=== PATIENT | male | born 1940 | race Caucasian/White ===

== ENCOUNTER 2021-10-25 12:47 | Inpatient (IN) | payer MEDICARE, OTHER, SELFPAY ==
[2021-10-25] VITALS (11 sets, daily range): BP systolic 88–124; BP diastolic 47–64; PULSE 67–88; RESP 12–24; TEMP 36.6–38; O2SAT 93–97; BMI 25.0; BMI 21.8
--- NOTE | ~2021-10-25 | XR_ITS ---
EXAMINATION: XR CHEST CLINICAL INFORMATION: Weakness. Fever. COMPARISON: None TECHNIQUE: 2 views of the chest were obtained. FINDINGS: The cardiac and mediastinal contours are normal. There is subsegmental atelectasis at the lung bases. The lungs are otherwise clear. There is blunting at the left lateral costophrenic angle questionable for a small left pleural effusion. There is no right pleural effusion. There is no pneumothorax. There are degenerative changes of the spine. XR/XR chest 2V IMPRESSION: Subsegmental atelectasis at the lung bases. Question small left pleural effusion.
--- NOTE | 2021-10-25 13:33 | ECG_ITS ---
Test Reason : WEAKNESS + AMS Blood Pressure : / mmHG Vent. Rate : 074 BPM Atrial Rate : 074 BPM P-R Int : 210 ms QRS Dur : 116 ms QT Int : 426 ms P-R-T Axes : 044 -23 071 degrees QTc Int : 472 ms Sinus rhythm with 1st degree A-V block Intra-ventricular conduction delay When compared with ECG of 02-JAN-2006 06:49, QRS duration increased. Referred By: Isha Noriega Electronically Signed By:MARY REGALADO
--- NOTE | 2021-10-25 13:37 | ED_ITS ---
HPI - Weakness General Chief complaint: General Medical Stated complaint: GENERAL WEAKNESS, FEVER FROM [facility] Time Seen by Provider: 10/25/21 13:07 Source: patient and EMS Mode of arrival: EMS Limitations: no limitations History of Present Illness HPI Narrative: patient presents from a [facility] for evaluation of generalized weakness and fever. Patient's family member presented to the facility and felt that he seemed more lethargic today than normal. Was found to have temp of 100.6 degrees. Patient is pleasantly confused, has no complaints when asked. Is oriented to person. Related Data Home Medications Medication Instructions Recorded Confirmed acetaminophen 650 mg 650 mg PO Q4H PRN 10/25/21 10/25/21 tablet,extended release albuterol sulfate 90 mcg/actuation 2 inh INHALATION Q4-6H PRN 10/25/21 10/25/21 breath activated powder inhaler amiodarone 400 mg tablet 400 mg PO BID 10/25/21 10/25/21 apixaban 5 mg tablet (Eliquis) 1 tab PO BID 10/25/21 10/25/21 calcium carbonate 600 mg-vitamin 1 tab PO DAILY 10/25/21 10/25/21 D3 5 mcg (200 unit) tablet furosemide 20 mg tablet 20 mg PO DAILY 10/25/21 10/25/21 gabapentin 600 mg tablet 600 mg PO BEDTIME 10/25/21 10/25/21 metoprolol succinate 25 mg 75 mg PO DAILY 10/25/21 10/25/21 tablet,extended release 24 hr multivitamin 1 tab PO DAILY 10/25/21 10/25/21 nystatin 100,000 unit/gram topical 1 appl TOPICAL QID PRN 10/25/21 10/25/21 cream paroxetine HCl 10 mg tablet 5 mg PO DAILY 10/25/21 10/25/21 polyethylene glycol 3350 17 gram 17 g PO DAILY PRN 10/25/21 10/25/21 oral powder packet pramipexole 0.75 mg tablet 0.75 mg PO BEDTIME 10/25/21 10/25/21 prednisone 1 mg tablet 3 mg PO DAILY 10/25/21 10/25/21 rotigotine 3 mg/24 hour 1 patch TOPICAL DAILY 10/25/21 10/25/21 transdermal 24 hour patch (Neupro) sennosides 8.6 mg tablet (senna) 8.6 mg PO DAILY PRN 10/25/21 10/25/21 sulfamethoxazole 800 1 tab PO MOWEFR 10/25/21 10/25/21 mg-trimethoprim 160 mg tablet tamsulosin 0.4 mg capsule 2 cap PO DAILY 10/25/21 10/25/21 Allergies Allergy/AdvReac Type Severity Reaction Status Date / Time Penicillins [PCN] Allergy Unknown Verified 10/25/21 13:29 Review of Systems Review of Systems: Yes Unobtainable due to mental status ( confusion, oriented to person only) [facility] Past Medical History Attestation statement: The following information was validated with the patient. Source: old records reviewed Medical History (Updated 10/25/21 @ 18:34 by Isha Noriega CNP) Anxiety Atrial fibrillation BPH (benign prostatic hyperplasia) Chronic indwelling Luther catheter Congestive heart failure (CHF) Current use of longterm anticoagulation Dysphagia Obstructive sleep apnea Restless leg syndrome Social History Social History Patient Tobacco Use Status: Tobacco use Unknown Use of substances other than those prescribed or required for medical reasons: No Advance Directives: No Advance Directives Information Provided: No Physical Exam Vital Signs: Vital Signs: Last Vital Signs Temp 97.9 F 10/25/21 16:06 Pulse 67 10/25/21 18:29 Resp 16 10/25/21 18:29 BP 108/64 10/25/21 18:29 Pulse Ox 97 10/25/21 16:25 Oxygen Flow Rate 2 10/25/21 13:24 BMI result Body Mass Index 21.8 Vital signs have been reviewed and appeared to be correct. Blood pressure low 94/57.? Heart rate normal.? Respiration rate normal. febrile 100.3? Oxygen saturation normal, on O2 via nasal cannula at 2 L, with chronic usage. Appearance: Alert.?Oriented to person, disoriented to place and time. No acute distress.? Eyes: Pupils equal, round and reactive to light.?EOMi. No Nystagmus ENT: Pharynx normal.?? Neck: Normal inspection.? Neck supple.?? CVS: Heart sounds normal. Normal heart rate and rhythm.? Pulses normal.?? Respiratory: No respiratory distress.? Lung sounds clear to auscultation un upper lobes, course in the right lower lobe, diminished to the left lower lobe Abdomen: Soft and non-tender. Normoactive bowel sounds. No pulsatile mass.?? Skin: Skin warm and dry.? Normal skin color.? Extremities: No lower extremity edema.? No calf ttp? Neuro: Moves all extremities spontaneously. Sensation intact bilaterally. CN II- XII intact. No focal neuro deficits. Course Course Course Narrative: Patient is an 81-year-old male presenting from a [facility] facility with concerns of generalized weakness, lethargy, and fever with a history atrial fibrillation long-term anticoagulation with Eliquis, CHF, dysphagia, BPH with chronic indwelling Luther catheter, anxiety, restless legs syndrome, obstructive sleep apnea, chronic O2 via nasal cannula. Will obtain CBC to evaluate for leukocytosis/ anemia, CMP to evaluate for abnormal electrolytes /abnormal renal function/ abnormal hepatic function, EKG and troponin to evaluate for ischemia/ACS. Chest x-ray to evaluate for consolidation/ infiltrate/ mass/ pulmonary congestion. Urinalysis to evaluate for infection. Low-grade fever and dysphagia, will order rectal Tylenol, 1 L normal saline IV fluid, blood cultures and lactic acid. given patient's altered mental status, and history of penicillin allergy with unknown severity, consulted with the ED attending Dr. Cazares and pharmacy, will cover with Meropenem at this time. Pressure 94/57, MAP currently greater than 65, given history CHF will defer sepsis fluid bolus at this time. Reevaluation(s) Reevaluation #1: CBC reveals leukocytosis WBC 13.0 with left shift. no lactic acidosis. BNP normal. Troponin 6.5, EKG reveals sinus rhythm with first-degree AV block, no acute concern for ischemia. COVID-19 negative. Influenza negative. chest x- ray reveals subsegmental atelectasis at the lung bases in question of small left pleural effusion. Urinalysis with positive nitrates, 3+ leuk esterase, urine WBC TNTC and hematuria. Patient's at bedside currently, she reports that over the last few weeks he was recently admitted to [facility] for which he was being treated with IV antibiotics for urinary tract infection. She states that he has been worked up over the past few months for progressive cognitive decline and weakness, immobility. Obtaining records from [facility] at this time, will continue to cover with meropenem Time: 14:52 Reevaluation #2: Received records from [facility], appears to have urine culture positive for Enterococcus faecialis is sensitive to ampicillin, initially treated with ceftriaxone and switched to ampicillin and discharged with oral amoxicillin to rehab facility. 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 Blood pressure 85/47, MAP 60 after receiving 1 L IV fluid, will order sepsis fluid bolus for total of 2,193 mL. Time: 15:56 Additional Reevaluation(s): 1630: blood pressure responding to fluids, 108/64, Spoke with Dr. Maier from hospitalist service, who accepts patient for admission to medicine service. [facility] - [facility] Medical Records Attestation: I reviewed the patient's medical records. Lab Data Attestation: I reviewed the patient's lab results. Result diagrams: 10/25/21 13:51 10/25/21 15:30 Labs: Lab Results 10/25/21 10/25/21 10/25/21 Range/Units 13:37 13:51 13:51 WBC 13.0 H (4.8-10.8) X10*3/uL RBC 4.14 L (4.60-5.80) X10*6/uL Hgb 12.2 L (14.0-18.0) g/dl Hct 39.3 L (42.0-52.0) % MCV 94.9 (80.0-98.0) fL MCH 29.5 (27.0-33.0) pg MCHC 31.0 (31.0-36.0) g/dl RDW 15.4 (11.0-16.0) % Plt Count 210 (160-400) X10*3/uL MPV 10.2 (9.4-12.4) fL Immature Gran % (Auto) 0.6 H (0.0-0.4) % Neut % (Auto) 83.9 H (45-73) % Lymph % (Auto) 6.8 L (20-40) % [place] % (Auto) 7.3 (2-11) % Eos % (Auto) 1.2 (0-4) % Baso % (Auto) 0.2 (0-2) % Lymph # (Auto) 0.9 L (1.2-4.9) X10*3/uL [place] # (Auto) 1.0 (0.1-1.2) X10*3/uL Eos # (Auto) 0.2 (0.0-0.4) X10*3/uL Baso # (Auto) 0.0 (0.0-0.2) X10*3/uL Abs Immat Gran (auto) 0.08 H (0.00-0.03) X10*3/uL Absolute Neuts (auto) 10.9 H (2.0-8.3) x10*3/uL Absolute Nucleated RBC 0.000 (0.0-0.012) X10*3/uL Nucleated RBC % (auto) 0.0 (0.0-0.2) /100WBC Sodium (135-145) mmol/L Potassium (3.3-5.1) mmol/L Chloride (96-108) mmol/L Carbon Dioxide (22-29) mmol/L Anion Gap (12-20) BUN (9-16) mg/dL Creatinine (0.5-1.4) mg/dL Estim Creat Clear Calc Estimated GFR POC Glucose 94 (60-115) mg/dL Random Glucose (60-115) mg/dL Lactic Acid 1.0 (0.5-2.0) mmol/L Calcium (8.4-10.2) mg/dL Total Bilirubin (0.0-1.0) mg/dL AST (5-37) U/L ALT (0-40) U/L Alkaline Phosphatase (39-117) U/L Troponin I High Sens (<3.5-35.0) ng/L B-Natriuretic Peptide (<100) pg/mL Total Protein (6.5-8.0) g/dL Albumin (3.5-5.0) g/dL Urine Color Urine Appearance Urine pH (5.0-8.0) Ur Specific [place] (1.005-1.025) Urine Protein (NEG-TRACE) MG/DL Urine Glucose (UA) (NEG) MG/DL Urine Ketones (NEG) MG/DL Urine Blood (NEG) Urine Nitrite (NEG) Ur Leukocyte Esterase (NEG) Urine RBC (0) /HPF Urine WBC (0-4) /HPF Ur Squamous Epith Cells /LPF Amorphous Sediment /LPF Urine Bacteria /LPF Urine Mucus /LPF COVID-19 (ERWIN) (Negative) COVID-19 Clin Com Influenza Type A ([facility]ITO) (Negative) Influenza Type B ([facility]) (Negative) Influenza A & B Note 10/25/21 10/25/21 10/25/21 Range/Units 13:51 13:59 13:59 WBC (4.8-10.8) X10*3/uL RBC (4.60-5.80) X10*6/uL Hgb (14.0-18.0) g/dl Hct (42.0-52.0) % MCV (80.0-98.0) fL MCH (27.0-33.0) pg MCHC (31.0-36.0) g/dl RDW (11.0-16.0) % Plt Count (160-400) X10*3/uL MPV (9.4-12.4) fL Immature Gran % (Auto) (0.0-0.4) % Neut % (Auto) (45-73) % Lymph % (Auto) (20-40) % [place] % (Auto) (2-11) % Eos % (Auto) (0-4) % Baso % (Auto) (0-2) % Lymph # (Auto) (1.2-4.9) X10*3/uL [place] # (Auto) (0.1-1.2) X10*3/uL Eos # (Auto) (0.0-0.4) X10*3/uL Baso # (Auto) (0.0-0.2) X10*3/uL Abs Immat Gran (auto) (0.00-0.03) X10*3/uL Absolute Neuts (auto) (2.0-8.3) x10*3/uL Absolute Nucleated RBC (0.0-0.012) X10*3/uL Nucleated RBC % (auto) (0.0-0.2) /100WBC Sodium (135-145) mmol/L Potassium (3.3-5.1) mmol/L Chloride (96-108) mmol/L Carbon Dioxide (22-29) mmol/L Anion Gap (12-20) BUN (9-16) mg/dL Creatinine (0.5-1.4) mg/dL Estim Creat Clear Calc Estimated GFR POC Glucose (60-115) mg/dL Random Glucose (60-115) mg/dL Lactic Acid (0.5-2.0) mmol/L Calcium (8.4-10.2) mg/dL Total Bilirubin (0.0-1.0) mg/dL AST (5-37) U/L ALT (0-40) U/L Alkaline Phosphatase (39-117) U/L Troponin I High Sens 6.5 (<3.5-35.0) ng/L B-Natriuretic Peptide 84 (<100) pg/mL Total Protein (6.5-8.0) g/dL Albumin (3.5-5.0) g/dL Urine Color Urine Appearance Urine pH (5.0-8.0) Ur Specific [place] (1.005-1.025) Urine Protein (NEG-TRACE) MG/DL Urine Glucose (UA) (NEG) MG/DL Urine Ketones (NEG) MG/DL Urine Blood (NEG) Urine Nitrite (NEG) Ur Leukocyte Esterase (NEG) Urine RBC (0) /HPF Urine WBC (0-4) /HPF Ur Squamous Epith Cells /LPF Amorphous Sediment /LPF Urine Bacteria /LPF Urine Mucus /LPF COVID-19 (ERWIN) Negative (Negative) COVID-19 Clin Com See Note Influenza Type A ([place]) Negative (Negative) Influenza Type B ([place]) Negative (Negative) Influenza A & B Note See Note 10/25/21 10/25/21 Range/Units 13:59 15:30 WBC (4.8-10.8) X10*3/uL RBC (4.60-5.80) X10*6/uL Hgb (14.0-18.0) g/dl Hct (42.0-52.0) % MCV (80.0-98.0) fL MCH (27.0-33.0) pg MCHC (31.0-36.0) g/dl RDW (11.0-16.0) % Plt Count (160-400) X10*3/uL MPV (9.4-12.4) fL Immature Gran % (Auto) (0.0-0.4) % Neut % (Auto) (45-73) % Lymph % (Auto) (20-40) % [place] % (Auto) (2-11) % Eos % (Auto) (0-4) % Baso % (Auto) (0-2) % Lymph # (Auto) (1.2-4.9) X10*3/uL [place] # (Auto) (0.1-1.2) X10*3/uL Eos # (Auto) (0.0-0.4) X10*3/uL Baso # (Auto) (0.0-0.2) X10*3/uL Abs Immat Gran (auto) (0.00-0.03) X10*3/uL Absolute Neuts (auto) (2.0-8.3) x10*3/uL Absolute Nucleated RBC (0.0-0.012) X10*3/uL Nucleated RBC % (auto) (0.0-0.2) /100WBC Sodium 141 (135-145) mmol/L Potassium 3.8 (3.3-5.1) mmol/L Chloride 108 (96-108) mmol/L Carbon Dioxide 26 (22-29) mmol/L Anion Gap 11 L (12-20) BUN 22 H (9-16) mg/dL Creatinine 1.10 (0.5-1.4) mg/dL Estim Creat Clear Calc 55.8 Estimated GFR > 60 POC Glucose (60-115) mg/dL Random Glucose 106 (60-115) mg/dL Lactic Acid (0.5-2.0) mmol/L Calcium 7.8 L (8.4-10.2) mg/dL Total Bilirubin 0.8 (0.0-1.0) mg/dL AST 23 (5-37) U/L ALT 24 (0-40) U/L Alkaline Phosphatase 73 (39-117) U/L Troponin I High Sens (<3.5-35.0) ng/L B-Natriuretic Peptide (<100) pg/mL Total Protein 5.2 L (6.5-8.0) g/dL Albumin 2.8 L (3.5-5.0) g/dL Urine Color YELLOW Urine Appearance CLOUDY Urine pH 5.5 (5.0-8.0) Ur Specific [place] 1.025 (1.005-1.025) Urine Protein 1+ H (NEG-TRACE) MG/DL Urine Glucose (UA) NEG (NEG) MG/DL Urine Ketones NEG (NEG) MG/DL Urine Blood 3+ H (NEG) Urine Nitrite POS H (NEG) Ur Leukocyte Esterase 3+ H (NEG) Urine RBC 15-29 H (0) /HPF Urine WBC TNTC H (0-4) /HPF Ur Squamous Epith Cells NONE /LPF Amorphous Sediment TRACE /LPF Urine Bacteria 1+ /LPF Urine Mucus 1+ /LPF COVID-19 (ERWIN) (Negative) COVID-19 Clin Com Influenza Type A ([place]ESITO) (Negative) Influenza Type B ([facility]ITO) (Negative) Influenza A & B Note Imaging Data Chest x-ray: Radiologist's impression: XR/XR chest 2V IMPRESSION: Subsegmental atelectasis at the lung bases. Question small left pleural effusion. ECG Data Attestation: I personally reviewed and interpreted this ECG as follows: ECG interpretation date: 10/25/21 ECG interpretation time: 15:21 Interpretation: Rate: 74 Rhythm:? sinus rhythm with first-degree AV block [place]:? normal Normal P waves.? prolonged AR interval, 210? Normal QRS complex.?? ST T wave :?? no ST elevation, no ST depression, no T-wave inversion qTC:472 prior studies:?2006 The study has been interpreted contemporaneously by me. Discharge Plan Discharge Clinical Impression: Urinary tract infection Patient Disposition: Admitted As Inpatient
[2021-10-25 13:43] LABS: Glucose, Whole Blood 94 mg/dL (60-115)
[2021-10-25] MEDS: 0.9 % Sodium Chloride 1,000 ML 999 ML IV (13:52)
[2021-10-25] MEDS: Acetaminophen Supp 650 MG SUPP.RECT PR (13:52)
[2021-10-25 14:02] LABS: MANUAL DIFF FLAG NO
[2021-10-25 14:04] LABS: Basophils Percent Auto 0.2 % (0-2); Eosinophils Absolute Auto 0.2 X10*3/uL (0.0-0.4); Eosinophils Percent Auto 1.2 % (0-4); Hematocrit 39.3 % (42.0-52.0); Hemoglobin 12.2 g/dl (14.0-18.0); Imm Gran Abs Auto 0.08 X10*3/uL (0.00-0.03); Imm Gran Pct Auto 0.6 % (0.0-0.4); Lymphocytes Absolute Auto 0.9 X10*3/uL (1.2-4.9); Lymphocytes Percent Auto 6.8 % (20-40); Mean Corpuscular Hemoglobin 29.5 pg (27.0-33.0); Mean Corpuscular Volume 94.9 fL (80.0-98.0); Mean Platelet Volume 10.2 fL (9.4-12.4); Monocytes Percent Auto 7.3 % (2-11); Neutrophils Absolute Auto 10.9 x10*3/uL (2.0-8.3); Neutrophils Percent Auto 83.9 % (45-73); Platelet Count 210 X10*3/uL (160-400); Red Blood Count 4.14 X10*6/uL (4.60-5.80); Red Cell Distribution Width 15.4 % (11.0-16.0)
[2021-10-25 14:16] LABS: Appearance Urine CLOUDY; Color Urine YELLOW; Glucose Urine UA NEG (NEG); Leukocyte Esterase Urine 3+ (NEG); Nitrite Urine POS (NEG); PH 5.5 (5.0-8.0); Specific Gravity - Urine 1.025 (1.005-1.025); UACC Culture Trigger YES; Urine Blood 3+ (NEG); Urine Ketones NEG (NEG); Urine Protein 1+ MG/DL (NEG-TRACE)
[2021-10-25 14:29] LABS: B Type Natriuretic Peptide 84 pg/mL (<100); Troponin-I High Sensitivity 6.5 ng/L (<3.5-35.0)
[2021-10-25 14:31] LABS: WBC Urine TNTC /HPF (0-4)
[2021-10-25 14:32] LABS: Amorphous Sediment Urine TRACE /LPF; Bacteria Urine 1+ /LPF; COVID-19 Test Negative (Negative); IDNOW Serial# 55D5AD1C
[2021-10-25 14:33] LABS: Mucus Urine 1+ /LPF
[2021-10-25 14:52] LABS: IDNOW Serial# 16C4AD1C; Influenza A Negative (Negative); Influenza B2 Negative (Negative)
--- NOTE | 2021-10-25 15:03 | PC.NURSE ---
[facility]tact for Stacy [phone] cell, [phone] home
[2021-10-25 15:54] LABS: Alanine Aminotransferase 24 U/L (0-40); Albumin Level 2.8 g/dL (3.5-5.0); Alkaline Phosphatase 73 U/L (39-117); Anion Gap 11 (12-20); Aspartate Amino Transferase 23 U/L (5-37); Bilirubin Total 0.8 mg/dL (0.0-1.0); Blood Urea Nitrogen 22 mg/dL (9-16); Calcium 7.8 mg/dL (8.4-10.2); Carbon Dioxide 26 mmol/L (22-29); Chloride 108 mmol/L (96-108); Creatinine Clr Calc Pharmacy 55.8; Estimated Glomerular Filt Rate > 60; Glucose Random 106 mg/dL (60-115); Potassium 3.8 mmol/L (3.3-5.1); Sodium 141 mmol/L (135-145); Total Protein 5.2 g/dL (6.5-8.0)
--- NOTE | 2021-10-25 18:34 | PC.NURSE ---
Pt is alert/confused (baseline per ) easily redirectable. Fluids are completed. BP trended up from prior soft BP's. skin pink warm and dry. NSR on tele. Pt denies pain or discomfort. awaits admit and bed assgn
--- NOTE | 2021-10-25 19:40 | PHA.MEDREC ---
Pharmacy Consult ? Medication Reconciliation Pharmacy has completed the medication reconciliation.
[2021-10-25] MEDS: Apixaban 5 MG TABLET PO (21:29)
[2021-10-25] MEDS: Amiodarone HCL 200 MG TABLET 400 MG PO (21:29)
[2021-10-25] MEDS: Gabapentin 600 MG TABLET PO (21:29)
[2021-10-25] MEDS: Pramipexole Di-HCL 0.25 MG TABLET 0.75 MG PO (22:18)
[2021-10-26] VITALS (11 sets, daily range): BP systolic 93–115; BP diastolic 48–67; PULSE 60–85; RESP 14–24; TEMP 36.8–37.7; O2SAT 93–97
[2021-10-26] MEDS: Ampicillin Sodium 2 GM in 0.9 % Sodium Chloride 100 ML IV ×5 (00:43→23:48)
[2021-10-26 06:32] LABS: MANUAL DIFF FLAG NO
--- NOTE | 2021-10-26 06:32 | P.HPHOSP_ITS ---
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 History is obtained mostly from ED PA as patient is completely confused, and unable to give history. According to ED patient was sent by facility due to fever of 100.6, and 1 family member while visiting the patient finding him to be more lethargic. On my interview, patient is alert, not oriented to self place or time. He is unaware of why he is in the hospital. After obtaining records from [facility], it appears that patient was recently treated for Enterococcus the Cialis and was discharged on a 7 day course of amoxicillin to the half-way facility on 10/12 Patient's vitals on arrival unremarkable Labs show WBC of 13.0, hemoglobin of 12.2, UA that is positive for nitrites, leukocyte Estrace and WBC Chest x-ray shows subsegmental atelectasis Patient will be admitted for further management Review of Systems Review of Systems: Yes all other systems are reviewed and are negative FORMERLY [facility], [facility]–1983 Medical History Anxiety Atrial fibrillation BPH (benign prostatic hyperplasia) Chronic indwelling Luther catheter Congestive heart failure (CHF) Current use of fpc anticoagulation Dysphagia Obstructive sleep apnea Restless leg syndrome Social History Patient Tobacco Use Status: Tobacco use Unknown Use of substances other than those prescribed or required for medical reasons: No Advance Directives: No Advance Directives Information Provided: No Meds Allergies Allergy/AdvReac Type Severity Reaction Status Date / Time Penicillins [PCN] Allergy Unknown Verified 10/25/21 13:29 Active Medications: Current Medications Acetaminophen (Acetaminophen 325 Mg Tablet) 650 mg PO Q6H PRN PRN Reason: Pain, Mild (Pain Scale 1-3) Albuterol Sulfate (Albuterol Sulfate 90 Mcg 8 Gm Inhaler) 2 puff INHALE Q4H PRN PRN Reason: Wheezing Amiodarone HCl (Amiodarone Hcl 200 Mg Tablet) 400 mg PO BID [facility] Last Admin: 10/25/21 21:29 Dose: 400 mg Documented by: Apixaban (Apixaban 5 Mg Tablet) 5 mg PO BID [facility] Last Admin: 10/25/21 21:29 Dose: 5 mg Documented by: Docusate Sodium (Docusate Sodium 100 Mg Capsule) 100 mg PO DAILY PRN PRN Reason: Constipation Furosemide (Furosemide 20 Mg Tablet) 20 mg PO DAILY [facility]; Protocol Gabapentin (Gabapentin 600 Mg Tablet) 600 mg PO BEDTIME [facility] Last Admin: 10/25/21 21:29 Dose: 600 mg Documented by: Ampicillin Sodium 2 gm/ Sodium (Chloride) 100 mls @ 100 mls/hr IV Q6H [facility] Last Admin: 10/26/21 06:21 Dose: 100 mls/hr Documented by: Metoprolol Succinate (Metoprolol Succinate Er 25 Mg Tab.Er.24h) 75 mg PO DAILY [facility]; Protocol Multivitamins/Vitamin C (Multivitamin Tablet) 1 tab PO DAILY [facility] Non-Formulary Medication (Rotigotine [Neupro]) 1 patch TOPICAL DAILY [facility] Nystatin (Nystatin Cream 15 Gm Tube) 1 appl TOPICAL QID PRN; Protocol PRN Reason: Rash Ondansetron HCl (Ondansetron Hcl 4 Mg/2 Ml Vial) 4 mg IVPUSH Q8H PRN PRN Reason: Nausea and Vomiting Paroxetine HCl (Paroxetine Hcl 10 Mg Tablet) 5 mg PO DAILY [facility] Pharmacy Consult (Consult Rx Perform Med Rec) 1 each MISCELLANE ONCE PRN PRN Reason: Consult order Polyethylene Glycol (Polyethylene Glycol 3350 17 Gm Powd.Pack) 17 gm PO DAILY PRN PRN Reason: Constipation Pramipexole Dihydrochloride (Pramipexole Di-Hcl 0.25 Mg Tablet) 0.75 mg PO BEDTIME [facility] Last Admin: 10/25/21 22:18 Dose: 0.75 mg Documented by: Prednisone (Prednisone 1 Mg Tablet) 3 mg PO DAILY [facility] Senna (Sennosides 8.6 Mg Tablet) 8.6 mg PO DAILY PRN PRN Reason: Constipation Sodium Chloride (0.9 % Sodium Chloride Flush 3 Ml Syringe) 3 ml IVFLUSH QSHIFT [facility] Last Admin: 10/26/21 00:43 Dose: Not Given Documented by: Tamsulosin HCl (Tamsulosin Hcl 0.4 Mg Capsule) 0.8 mg PO DAILY [facility] Trimethoprim/Sulfamethoxazole (Sulfamethox/Trimeth 800/160 Tablet) 1 tab PO MOWEFR [facility] Home Medications Medication Instructions Recorded Confirmed Last Taken Type acetaminophen 650 mg 650 mg PO Q4H PRN 10/25/21 10/25/21 Unknown History tablet,extended release albuterol sulfate 90 mcg/actuation 2 inh INHALATION Q4-6H PRN 10/25/21 10/25/21 Unknown History breath activated powder inhaler amiodarone 400 mg tablet 400 mg PO BID 10/25/21 10/25/21 Unknown History apixaban 5 mg tablet (Eliquis) 1 tab PO BID 10/25/21 10/25/21 Unknown History calcium carbonate 600 mg-vitamin 1 tab PO DAILY 10/25/21 10/25/21 Unknown History D3 5 mcg (200 unit) tablet furosemide 20 mg tablet 20 mg PO DAILY 10/25/21 10/25/21 Unknown History gabapentin 600 mg tablet 600 mg PO BEDTIME 10/25/21 10/25/21 Unknown History metoprolol succinate 25 mg 75 mg PO DAILY 10/25/21 10/25/21 Unknown History tablet,extended release 24 hr multivitamin 1 tab PO DAILY 10/25/21 10/25/21 Unknown History nystatin 100,000 unit/gram topical 1 appl TOPICAL QID PRN 10/25/21 10/25/21 Unknown History cream paroxetine HCl 10 mg tablet 5 mg PO DAILY 10/25/21 10/25/21 Unknown History polyethylene glycol 3350 17 gram 17 g PO DAILY PRN 10/25/21 10/25/21 Unknown History oral powder packet pramipexole 0.75 mg tablet 0.75 mg PO BEDTIME 10/25/21 10/25/21 Unknown History prednisone 1 mg tablet 3 mg PO DAILY 10/25/21 10/25/21 Unknown History rotigotine 3 mg/24 hour 1 patch TOPICAL DAILY 10/25/21 10/25/21 Unknown History transdermal 24 hour patch (Neupro) sennosides 8.6 mg tablet (senna) 8.6 mg PO DAILY PRN 10/25/21 10/25/21 Unknown History sulfamethoxazole 800 1 tab PO MOWEFR 10/25/21 10/25/21 Unknown History mg-trimethoprim 160 mg tablet tamsulosin 0.4 mg capsule 2 cap PO DAILY 10/25/21 10/25/21 Unknown History Physical Exam Vital Signs and Narrative: Vital Signs: Last Vital Signs Temp 97.9 F 10/25/21 16:06 Pulse 65 10/26/21 04:13 Resp 17 10/26/21 04:13 BP 98/55 L 10/26/21 04:13 Pulse Ox 97 10/26/21 04:13 Oxygen Flow Rate 2 10/25/21 13:24 BMI result Body Mass Index 21.8 Const: Other: Very confused, not oriented to self place or time General: cooperative and no acute distress Eyes: General: appearance normal, both eyes and all related structures Pupils: Equal, round and reactive pupils present Resp: Effort & Inspection: normal respiratory effort Auscultation: clear to auscultation bilaterally Cardio: Rate: regular rate Rhythm: regular rhythm GI: Palpation (GI): Soft to palpation Auscultation: normal bowel sounds Skin: General skin exam: no rashes or lesions noted Neuro: Cranial nerves: Yes Equal, round and reactive pupils present Extrem: General: Yes normal to inspection and Yes no pedal edema Results Labs CBC and Chem 7: 10/25/21 13:51 10/25/21 15:30 Labs: Laboratory Results - last 24 hr 10/25/21 10/25/21 10/25/21 13:37 13:51 13:51 MCV 94.9 MCH 29.5 MCHC 31.0 RDW 15.4 Plt Count 210 MPV 10.2 Immature Gran % (Auto) 0.6 H Neut % (Auto) 83.9 H Lymph % (Auto) 6.8 L Caroline % (Auto) 7.3 Eos % (Auto) 1.2 Baso % (Auto) 0.2 Lymph # (Auto) 0.9 L Caroline # (Auto) 1.0 Eos # (Auto) 0.2 Baso # (Auto) 0.0 Abs Immat Gran (auto) 0.08 H Absolute Neuts (auto) 10.9 H Absolute Nucleated RBC 0.000 Nucleated RBC % (auto) 0.0 Anion Gap Estim Creat Clear Calc Estimated GFR POC Glucose 94 Random Glucose Lactic Acid 1.0 Calcium Total Bilirubin AST ALT Alkaline Phosphatase Troponin I High Sens B-Natriuretic Peptide Total Protein Albumin Urine Color Urine Appearance Urine pH Ur Specific [place] Urine Protein Urine Glucose (UA) Urine Ketones Urine Blood Urine Nitrite Ur Leukocyte Esterase Urine RBC Urine WBC Ur Squamous Epith Cells Amorphous Sediment Urine Bacteria Urine Mucus COVID-19 (ERWIN) COVID-19 Clin Com Influenza Type A ([facility]OSESITO) Influenza Type B (JOSESITO) Influenza A & B Note 10/25/21 10/25/21 10/25/21 13:51 13:59 13:59 MCV MCH MCHC RDW Plt Count MPV Immature Gran % (Auto) Neut % (Auto) Lymph % (Auto) Caroline % (Auto) Eos % (Auto) Baso % (Auto) Lymph # (Auto) Caroline # (Auto) Eos # (Auto) Baso # (Auto) Abs Immat Gran (auto) Absolute Neuts (auto) Absolute Nucleated RBC Nucleated RBC % (auto) Anion Gap Estim Creat Clear Calc Estimated GFR POC Glucose Random Glucose Lactic Acid Calcium Total Bilirubin AST ALT Alkaline Phosphatase Troponin I High Sens 6.5 B-Natriuretic Peptide 84 Total Protein Albumin Urine Color Urine Appearance Urine pH Ur Specific [place] Urine Protein Urine Glucose (UA) Urine Ketones Urine Blood Urine Nitrite Ur Leukocyte Esterase Urine RBC Urine WBC Ur Squamous Epith Cells Amorphous Sediment Urine Bacteria Urine Mucus COVID-19 (ERWIN) Negative COVID-19 Clin Com See Note Influenza Type A (JOSESITO) Negative Influenza Type B ([facility]OSESITO) Negative Influenza A & B Note See Note 10/25/21 10/25/21 13:59 15:30 MCV MCH MCHC RDW Plt Count MPV Immature Gran % (Auto) Neut % (Auto) Lymph % (Auto) Caroline % (Auto) Eos % (Auto) Baso % (Auto) Lymph # (Auto) Caroline # (Auto) Eos # (Auto) Baso # (Auto) Abs Immat Gran (auto) Absolute Neuts (auto) Absolute Nucleated RBC Nucleated RBC % (auto) Anion Gap 11 L Estim Creat Clear Calc 55.8 Estimated GFR > 60 POC Glucose Random Glucose 106 Lactic Acid Calcium 7.8 L Total Bilirubin 0.8 AST 23 ALT 24 Alkaline Phosphatase 73 Troponin I High Sens B-Natriuretic Peptide Total Protein 5.2 L Albumin 2.8 L Urine Color YELLOW Urine Appearance CLOUDY Urine pH 5.5 Ur Specific [place] 1.025 Urine Protein 1+ H Urine Glucose (UA) NEG Urine Ketones NEG Urine Blood 3+ H Urine Nitrite POS H Ur Leukocyte Esterase 3+ H Urine RBC 15-29 H Urine WBC TNTC H Ur Squamous Epith Cells NONE Amorphous Sediment TRACE Urine Bacteria 1+ Urine Mucus 1+ COVID-19 (ERWIN) COVID-19 Clin Com Influenza Type A (JOSESITO) Influenza Type B ([facility]OSESITO) Influenza A & B Note Imaging Radiologist's Impressions: Impressions Chest X-Ray 10/25/21 14:20 IMPRESSION: Subsegmental atelectasis at the lung bases. Question small left pleural effusion. Assessment and Plan (1) Encephalopathy: Status: Acute (2) Urinary tract infection: Status: Acute Plan Is an 81-year-old male with past medical history a flutter, small-vessel vasculitis Encephalopathy, BPH, CHF, HTN who presents to the hospital from half-way with complaints of fever found to have UTI # acute UTI - likely in the setting of indwelling Luther catheter - patient has encephalopathy but likely baseline - treat with IV antibiotics, previous cultures have shown Enterococcus faecalis(per records from [facility] from a discharge on 10/12) - will treat with ampicillin - follow cultures # encephalopathy - possibly multifactorial, metabolic verses, [employer]. - patient has underlying and a small vessel vasculitis currently being treated with Bactrim as well as chronic prednisone as well as acute infection - will continue prednisone, Bactrim, will add ampicillin for treatment of UTI - follow mentation # history of CHF - not in volume overload - continue metoprolol # a flutter - rate controlled - continue amiodarone and Eliquis DVT prophylaxis: Eliquis Given cephalopathy, and UTI requiring IV antibiotics, patient needs a medically necessary to day admission to the hospital for further management and monitoring Quality Stroke Does the patient have a stroke diagnosis?: No VTE Prior VTE?: No VTE Risk Level:: Medical - moderate - high VTE Device Contraindication: Treatment Not Indicated VTE Drug Contraindication: N/A - Med Ordered
[2021-10-26 06:36] LABS: Basophils Percent Auto 0.4 % (0-2); Eosinophils Absolute Auto 0.3 X10*3/uL (0.0-0.4); Hematocrit 37.9 % (42.0-52.0); Hemoglobin 11.6 g/dl (14.0-18.0); Imm Gran Abs Auto 0.05 X10*3/uL (0.00-0.03); Imm Gran Pct Auto 0.6 % (0.0-0.4); Lymphocytes Absolute Auto 1.1 X10*3/uL (1.2-4.9); Lymphocytes Percent Auto 13.3 % (20-40); Mean Corpuscular HGB Conc 30.6 g/dl (31.0-36.0); Mean Corpuscular Hemoglobin 29.7 pg (27.0-33.0); Mean Corpuscular Volume 97.2 fL (80.0-98.0); Monocytes Absolute Auto 0.7 X10*3/uL (0.1-1.2); Monocytes Percent Auto 8.8 % (2-11); Neutrophils Absolute Auto 6.2 x10*3/uL (2.0-8.3); Neutrophils Percent Auto 73.9 % (45-73); Platelet Count 190 X10*3/uL (160-400); Red Cell Distribution Width 15.4 % (11.0-16.0); White Blood Count 8.3 X10*3/uL (4.8-10.8)
[2021-10-26 06:52] LABS: Anion Gap 10 (12-20); Blood Urea Nitrogen 19 mg/dL (9-16); Calcium 8.1 mg/dL (8.4-10.2); Carbon Dioxide 26 mmol/L (22-29); Chloride 109 mmol/L (96-108); Creatinine Clr Calc Pharmacy 69.7; Estimated Glomerular Filt Rate > 60; Glucose Random 86 mg/dL (60-115); Potassium 4.4 mmol/L (3.3-5.1); Sodium 141 mmol/L (135-145)
--- NOTE | 2021-10-26 07:27 | PC.NURSE ---
Assumed care of pt at 0700, pt respositioned in bed. Given breakfast tray at this time. IV antibiotics completed, pharmacy called for schedule change. Call webb within reach. Will continue to monitor.
--- NOTE | 2021-10-26 07:51 | PM.EVENT ---
Event Note Date of Service: 10/26/21 Event Note: 81-year-old male with past medical history a flutter, small-vessel vasculitis Encephalopathy, BPH, CHF, HTN who presents to the hospital from long-term with complaints of fever found to have UTI acute UTI likely in the setting of indwelling Luther catheter patient has encephalopathy but likely baseline treat with IV antibiotics, previous cultures have shown Enterococcus faecalis(per records from [facility] from a discharge on 10/12) will treat with ampicillin follow cultures Metabolic encephalopathy, acute patient has underlying and a small vessel vasculitis currently being treated with Bactrim as well as chronic prednisone as well as acute infection will continue prednisone, Bactrim, will add ampicillin for treatment of UTI follow mentation history of CHF not in volume overload continue metoprolol a flutter rate controlled continue amiodarone and Eliquhector DVT prophylaxis: Alinaquhector Attending Dr. Henson Given encephalopathy, and UTI requiring IV antibiotics, patient needs a medically necessary2 day admission to the hospital for further management and monitoring
[2021-10-26] MEDS: Tamsulosin HCL 0.4 MG CAPSULE 0.8 MG PO (09:57)
[2021-10-26] MEDS: Amiodarone HCL 200 MG TABLET 400 MG PO (09:57)
[2021-10-26] MEDS: Furosemide 20 MG TABLET PO (09:57)
[2021-10-26] MEDS: Multivitamin TABLET 1 TAB PO (09:57)
[2021-10-26] MEDS: Apixaban 5 MG TABLET PO ×2 (09:57→21:26)
[2021-10-26] MEDS: predniSONE 1 MG TABLET 3 MG PO (10:33)
[2021-10-26] MEDS: Sulfamethox/Trimeth 800/160 TABLET 1 TAB PO (10:33)
[2021-10-26] MEDS: PARoxetine HCL 10 MG TABLET 5 MG PO (10:33)
--- NOTE | 2021-10-26 11:36 | P.CDIC_ITS ---
CDI Concurrent Query Documentation Clarification: PHYSICIAN'S DOCUMENTATION REQUEST Date of Query: 10/26/21 1136 Patient Name: Aron Schilling Admit Date: 10/25/21 Dear Doctor, A review of the medical record indicates additional documentation may be needed. Please review below and update the documentation accordingly. Clinical Indicators: Is there a diagnosis that correlates with these lab findings: Risk Factors/Clinical Indicators/Treatments LABS: albumin 2.8 L Total protein and albumin low, suspect this is secondary to dehydration/malnutrition. BMI 21.8 IV fluids replenished. Please indicate in your progress notes if you are in agreement that the above diagnosis is valid for this patient: Hypoalbuminemia, malnutrition, mild, moderate etc. or other etiology of albumin: * Yes, [ ] is a valid diagnosis for this patient * No, [ ] is a not a valid diagnosis for this patient * Other (please specify) * Unable to determine Use of terms such as suspected, likely, concern for, or probable (associated with a specific diagnosis that is being evaluated, monitored, or treated as if it exists) are acceptable and can be coded in the inpatient setting, when documented at the time of discharge. Thank you, Iris Almonte [facility], CDIS Extension: [phone] Please use your independent medical judgment in providing your response. THIS QUERY IS PART OF THE PERMANENT MEDICAL RECORD
[2021-10-26] MEDS: Albuterol Sulfate 90 MCG 8 GM INHALER 2 PUFF INHALE ×2 (12:48→19:08)
--- NOTE | 2021-10-26 14:15 | MHC.CM.PN ---
CM MET WITH PT AND HIS WHO WAS AT BEDSIDE PT HAS BEEN AT [facility] FOR STR HOWEVER PER , HAS BEEN IN AND OUT OF [facility] SO HAS NOT YET MADE ANY GAINS ON HIS REHAB SHE REPORTS PT WAS USING A WALKER AT HOME BUT CURRENTLY REQUIRES A WALKER AND A 2 ASSIST SHE REPORTS PRIOR TO STR, PT WAS ACTIVE WITH [facility] AT HOME SHE SAYS PT IS A HOWEVER THEY ARE JUST NOW SIGNING UP FOR SERVICES. SHE REPORTS THERE IS A PAPER THAT HIS PCP WAS SUPPOSED TO SIGN FOR HOME CARE HOWEVER BECAUSE HE IS RETIRING, HE DOES NOT SEEM TO BE GETTING IT DONE. SHE ASKS IF [facility] [place] WOULD BE WILLING TO SIGN AND SHE WILL BRING IT IN. SHE WAS INFORMED THIS WOULD BE AT THE MD'S DISCRETION AND CM COULD NOT PROVIDE AN ANSWER SHE WILL BRING IT IN TOMORROW AROUND LUNCH TIME SHE REPORTS THE PT IS COVID-19 VACCINATED SHE ALSO REPORTS PT HAS A HCP, SHE IS UNSURE IF THE REHAB HAS A COPY. MESSAGE SENT TO REHAB TO REQUEST A COPY, OTHERWISE, PTS WILL BRING IT IMM DELIVERED, COPY SENT TO [facility] CURRENT DC PLAN IS RETURN TO [facility] PT WILL LIKELY NEED A PT EVAL TO SKILL IN AGAIN BLS TRANSPORT AMISHA CELL PHONE: [phone]
--- NOTE | 2021-10-26 14:19 | P.CNID_ITS ---
History of Present Illness Data of Consult Service Date: 10/26/21 Requesting physician: Sumi Shukla Primary Care Provider: Jak Dalal MD HPI Reason for consult: altered mental status He presents from [facility] with weakness and fever per his . He gets most of care through [facility] and had been admitted for encephalitis and concern over giant cell arteritis. He is on Prednisone taper and on Bactrim for PJP prophylaxis. He had enterococcus in urine recently and given Ampicillin and then Amoxicillin outpatient He has chronic indwelling Luther Review of Systems Review of Systems: Yes all other systems are reviewed and are negative [facility] Past Medical History Medical History Anxiety Atrial fibrillation BPH (benign prostatic hyperplasia) Chronic indwelling Luther catheter Congestive heart failure (CHF) Current use of care center manager anticoagulation Dysphagia Obstructive sleep apnea Restless leg syndrome Family History Family history: reviewed and not pertinent Social History Social History Patient Tobacco Use Status: Tobacco use Unknown Use of substances other than those prescribed or required for medical reasons: No Advance Directives: No Advance Directives Information Provided: No service: Yes Current occupational status: retired Meds Allergies Allergy/AdvReac Type Severity Reaction Status Date / Time Penicillins [PCN] Allergy Unknown Verified 10/25/21 13:29 Active Medications: Current Medications Acetaminophen (Acetaminophen 325 Mg Tablet) 650 mg PO Q6H PRN PRN Reason: Pain, Mild (Pain Scale 1-3) Albuterol Sulfate (Albuterol Sulfate 90 Mcg 8 Gm Inhaler) 2 puff INHALE Q4H PRN PRN Reason: Wheezing Last Admin: 10/26/21 12:48 Dose: 2 puff Documented by: Amiodarone HCl (Amiodarone Hcl 200 Mg Tablet) 400 mg PO BID [facility] Last Admin: 10/26/21 09:57 Dose: 400 mg Documented by: Apixaban (Apixaban 5 Mg Tablet) 5 mg PO BID [facility] Last Admin: 10/26/21 09:57 Dose: 5 mg Documented by: Docusate Sodium (Docusate Sodium 100 Mg Capsule) 100 mg PO DAILY PRN PRN Reason: Constipation Furosemide (Furosemide 20 Mg Tablet) 20 mg PO DAILY [facility]; Protocol Last Admin: 10/26/21 09:57 Dose: 20 mg Documented by: Gabapentin (Gabapentin 600 Mg Tablet) 600 mg PO BEDTIME [facility] Last Admin: 10/25/21 21:29 Dose: 600 mg Documented by: Ampicillin Sodium 2 gm/ Sodium (Chloride) 100 mls @ 100 mls/hr IV Q6H [facility] Last Admin: 10/26/21 12:39 Dose: 100 mls/hr Documented by: Metoprolol Succinate (Metoprolol Succinate Er 25 Mg Tab.Er.24h) 75 mg PO DAILY [facility]; Protocol Last Admin: 10/26/21 10:05 Dose: Not Given Documented by: Multivitamins/Vitamin C (Multivitamin Tablet) 1 tab PO DAILY [facility] Last Admin: 10/26/21 09:57 Dose: 1 tab Documented by: Non-Formulary Medication (Rotigotine [Neupro]) 1 patch TOPICAL DAILY [facility] Nystatin (Nystatin Cream 15 Gm Tube) 1 appl TOPICAL QID PRN; Protocol PRN Reason: Rash Ondansetron HCl (Ondansetron Hcl 4 Mg/2 Ml Vial) 4 mg IVPUSH Q8H PRN PRN Reason: Nausea and Vomiting Paroxetine HCl (Paroxetine Hcl 10 Mg Tablet) 5 mg PO DAILY [facility] Last Admin: 10/26/21 10:33 Dose: 5 mg Documented by: Pharmacy Consult (Consult Rx Perform Med Rec) 1 each MISCELLANE ONCE PRN PRN Reason: Consult order Polyethylene Glycol (Polyethylene Glycol 3350 17 Gm Powd.Pack) 17 gm PO DAILY PRN PRN Reason: Constipation Pramipexole Dihydrochloride (Pramipexole Di-Hcl 0.25 Mg Tablet) 0.75 mg PO BEDTIME [facility] Last Admin: 10/25/21 22:18 Dose: 0.75 mg Documented by: Prednisone (Prednisone 1 Mg Tablet) 3 mg PO DAILY [facility] Last Admin: 10/26/21 10:33 Dose: 3 mg Documented by: Senna (Sennosides 8.6 Mg Tablet) 8.6 mg PO DAILY PRN PRN Reason: Constipation Sodium Chloride (0.9 % Sodium Chloride Flush 3 Ml Syringe) 3 ml IVFLUSH QSHIFT [facility] Last Admin: 10/26/21 07:24 Dose: Not Given Documented by: Tamsulosin HCl (Tamsulosin Hcl 0.4 Mg Capsule) 0.8 mg PO DAILY [facility] Last Admin: 10/26/21 09:57 Dose: 0.8 mg Documented by: Trimethoprim/Sulfamethoxazole (Sulfamethox/Trimeth 800/160 Tablet) 1 tab PO MOWEFR ANJALI Last Admin: 10/26/21 10:33 Dose: 1 tab Documented by: Home Medications Medication Instructions Recorded Confirmed Last Taken Type acetaminophen 650 mg 650 mg PO Q4H PRN 10/25/21 10/25/21 Unknown History tablet,extended release albuterol sulfate 90 mcg/actuation 2 inh INHALATION Q4-6H PRN 10/25/21 10/25/21 Unknown History breath activated powder inhaler amiodarone 400 mg tablet 400 mg PO BID 10/25/21 10/25/21 Unknown History apixaban 5 mg tablet (Eliquis) 1 tab PO BID 10/25/21 10/25/21 Unknown History calcium carbonate 600 mg-vitamin 1 tab PO DAILY 10/25/21 10/25/21 Unknown History D3 5 mcg (200 unit) tablet furosemide 20 mg tablet 20 mg PO DAILY 10/25/21 10/25/21 Unknown History gabapentin 600 mg tablet 600 mg PO BEDTIME 10/25/21 10/25/21 Unknown History metoprolol succinate 25 mg 75 mg PO DAILY 10/25/21 10/25/21 Unknown History tablet,extended release 24 hr multivitamin 1 tab PO DAILY 10/25/21 10/25/21 Unknown History nystatin 100,000 unit/gram topical 1 appl TOPICAL QID PRN 10/25/21 10/25/21 Unknown History cream paroxetine HCl 10 mg tablet 5 mg PO DAILY 10/25/21 10/25/21 Unknown History polyethylene glycol 3350 17 gram 17 g PO DAILY PRN 10/25/21 10/25/21 Unknown History oral powder packet pramipexole 0.75 mg tablet 0.75 mg PO BEDTIME 10/25/21 10/25/21 Unknown History prednisone 1 mg tablet 3 mg PO DAILY 10/25/21 10/25/21 Unknown History rotigotine 3 mg/24 hour 1 patch TOPICAL DAILY 10/25/21 10/25/21 Unknown History transdermal 24 hour patch (Neupro) sennosides 8.6 mg tablet (senna) 8.6 mg PO DAILY PRN 10/25/21 10/25/21 Unknown History sulfamethoxazole 800 1 tab PO MOWEFR 10/25/21 10/25/21 Unknown History mg-trimethoprim 160 mg tablet tamsulosin 0.4 mg capsule 2 cap PO DAILY 10/25/21 10/25/21 Unknown History Physical Exam Vital Signs: Vital Signs: Last Vital Signs Temp 97.9 F 10/25/21 16:06 Pulse 76 10/26/21 12:52 Resp 18 10/26/21 12:52 BP 104/57 L 10/26/21 10:23 Pulse Ox 94 10/26/21 10:23 Oxygen Flow Rate 2 10/25/21 13:24 BMI result Body Mass Index 21.8 Const: General: cooperative HEENT: Head: Yes normal to inspection Mouth: Normal oral and palatal mucosa present Resp: Effort & Inspection: normal respiratory effort Cardio: Rate: regular rate Rhythm: regular rhythm GI: Palpation (GI): Soft to palpation and nontender Skin: General skin exam: no rashes or lesions noted Extrem: General: Yes normal to inspection Psych: Other: neuro nonfocal answers questions appropriately Results Labs CBC & Chem 7: 10/26/21 06:24 10/26/21 06:24 Labs: Short CBC 10/26/21 Range/Units 06:24 WBC 8.3 (4.8-10.8) X10*3/uL Hgb 11.6 L (14.0-18.0) g/dl Hct 37.9 L (42.0-52.0) % Plt Count 190 (160-400) X10*3/uL BMP 10/25/21 10/26/21 15:30 06:24 Sodium 141 141 Potassium 3.8 4.4 Chloride 108 109 H Carbon Dioxide 26 26 BUN 22 H 19 H Creatinine 1.10 0.83 Calcium 7.8 L 8.1 L Liver Function 10/25/21 Range/Units 15:30 Total Bilirubin 0.8 (0.0-1.0) mg/dL AST 23 (5-37) U/L ALT 24 (0-40) U/L Alkaline Phosphatase 73 (39-117) U/L Albumin 2.8 L (3.5-5.0) g/dL Urine 10/25/21 Range/Units 13:59 Urine Color YELLOW Urine Appearance CLOUDY Urine pH 5.5 (5.0-8.0) Ur Specific [place] 1.025 (1.005-1.025) Urine Protein 1+ H (NEG-TRACE) MG/DL Urine Glucose (UA) NEG (NEG) MG/DL Microbiology Microbiology Results: Microbiology 10/25/21 14:22 Urine clean catch - Urine maciel top Urine Culture - Preliminary Culture in progress. Assessment and Plan (1) Encephalopathy: Status: Acute There is concern over bacterial sepsis UTI other source sepsis ?viral (2) Urinary tract infection: Status: Acute Plan May continue Ampicillin for now as Penicillin allergy doesnt seem to be true at this point Continue Bactrim Consider abdomen CT if worsen Await cultures
--- NOTE | 2021-10-26 15:51 | PC.NURSE ---
skin checked at this time, no obvious breakdown apparent. blanchable redness to sacrum area. patient rotated onto left side. patient in no obvious distress at this time, denies any needs. 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 patient falls asleep quickly, easy to arouse
[2021-10-26] MEDS: 0.9 % Sodium Chloride Flush 3 ML SYRINGE IVFLUSH ×2 (16:10→21:26)
[2021-10-26] MEDS: Pramipexole Di-HCL 0.25 MG TABLET 0.75 MG PO (21:26)
[2021-10-26] MEDS: Gabapentin 600 MG TABLET PO (21:26)
[2021-10-27] VITALS (7 sets, daily range): BP systolic 90–110; BP diastolic 53–59; PULSE 55–100; RESP 16–18; TEMP 36.3–37.1; O2SAT 93–95
[2021-10-27] MEDS: Ampicillin Sodium 2 GM in 0.9 % Sodium Chloride 100 ML IV ×3 (05:57→18:39)
[2021-10-27 06:03] LABS: Anion Gap 8 (12-20); Blood Urea Nitrogen 16 mg/dL (9-16); Calcium 8.3 mg/dL (8.4-10.2); Carbon Dioxide 28 mmol/L (22-29); Chloride 108 mmol/L (96-108); Creatinine Clr Calc Pharmacy 62.9; Estimated Glomerular Filt Rate > 60; Glucose Random 107 mg/dL (60-115); Potassium 4.1 mmol/L (3.3-5.1); Sodium 140 mmol/L (135-145)
[2021-10-27] MEDS: 0.9 % Sodium Chloride Flush 3 ML SYRINGE IVFLUSH ×3 (08:07→21:22)
[2021-10-27] MEDS: Furosemide 20 MG TABLET PO (08:08)
[2021-10-27] MEDS: PARoxetine HCL 10 MG TABLET 5 MG PO (08:08)
[2021-10-27] MEDS: Tamsulosin HCL 0.4 MG CAPSULE 0.8 MG PO (08:08)
[2021-10-27] MEDS: Apixaban 5 MG TABLET PO ×2 (08:09→21:22)
[2021-10-27] MEDS: Multivitamin TABLET 1 TAB PO (08:09)
[2021-10-27] MEDS: predniSONE 1 MG TABLET 3 MG PO (08:09)
--- NOTE | 2021-10-27 11:12 | P.PNIM_ITS ---
Subjective Subjective Date of Service: 10/27/21 Interval History: No fever. Denies abd pain. Denies flank pain. No nausea or vomiting. Review of Systems Review of Systems: Yes all other systems are reviewed and are negative Physical Exam Vital Signs: Vital Signs: Last Vital Signs Temp 98.8 F 10/27/21 08:00 Pulse 82 10/27/21 08:50 Resp 18 10/27/21 08:00 BP 93/54 L 10/27/21 08:50 Pulse Ox 93 10/27/21 08:50 Oxygen Flow Rate 2 10/25/21 13:24 BMI result Body Mass Index 21.8 Gen: in no acute distress HEENT: sclera anicteric, moist mucus membranes Neck: supple Lungs: clear to auscultation bilaterally Heart: regular rate and rhythm, no murmurs Abd: soft, non-tender, non-distended : Luther in place Ext: no edema Skin: warm/well-perfused Neuro: alert and oriented to self and place Psych: appropriate affect Objective Data Active Medications Acetaminophen (Acetaminophen 325 Mg Tablet) 650 mg PO Q6H PRN PRN Reason: Pain, Mild (Pain Scale 1-3) Albuterol Sulfate (Albuterol Sulfate 90 Mcg 8 Gm Inhaler) 2 puff INHALE Q4H PRN PRN Reason: Wheezing Last Admin: 10/26/21 19:08 Dose: 2 puff Documented by: CHAR Amiodarone HCl (Amiodarone Hcl 200 Mg Tablet) 400 mg PO BID [facility] Last Admin: 10/27/21 08:08 Dose: Not Given Documented by: LILA Non-Admin Reason: Decreased Blood Pressure Apixaban (Apixaban 5 Mg Tablet) 5 mg PO BID [facility] Last Admin: 10/27/21 08:09 Dose: 5 mg Documented by: LILA Docusate Sodium (Docusate Sodium 100 Mg Capsule) 100 mg PO DAILY PRN PRN Reason: Constipation Furosemide (Furosemide 20 Mg Tablet) 20 mg PO DAILY [facility]; Protocol Last Admin: 10/27/21 08:08 Dose: 20 mg Documented by: LILA Gabapentin (Gabapentin 600 Mg Tablet) 600 mg PO BEDTIME [facility] Last Admin: 10/26/21 21:26 Dose: 600 mg Documented by: LILA Ampicillin Sodium 2 gm/ Sodium (Chloride) 100 mls @ 100 mls/hr IV Q6H [facility] Last Infusion: 10/27/21 07:13 Dose: 0 mls/hr Documented by: KIMBERLEE Metoprolol Succinate (Metoprolol Succinate Er 25 Mg Tab.Er.24h) 75 mg PO DAILY [facility]; Protocol Last Admin: 10/27/21 08:10 Dose: Not Given Documented by: LILA Non-Admin Reason: Decreased Blood Pressure Multivitamins/Vitamin C (Multivitamin Tablet) 1 tab PO DAILY [facility] Last Admin: 10/27/21 08:09 Dose: 1 tab Documented by: LILA Non-Formulary Medication (Rotigotine [Neupro]) 1 patch TOPICAL DAILY [facility] Nystatin (Nystatin Cream 15 Gm Tube) 1 appl TOPICAL QID PRN; Protocol PRN Reason: Rash Ondansetron HCl (Ondansetron Hcl 4 Mg/2 Ml Vial) 4 mg IVPUSH Q8H PRN PRN Reason: Nausea and Vomiting Paroxetine HCl (Paroxetine Hcl 10 Mg Tablet) 5 mg PO DAILY [facility] Last Admin: 10/27/21 08:08 Dose: 5 mg Documented by: LILA Pharmacy Consult (Consult Rx Perform Med Rec) 1 each MISCELLANE ONCE PRN PRN Reason: Consult order Polyethylene Glycol (Polyethylene Glycol 3350 17 Gm Powd.Pack) 17 gm PO DAILY PRN PRN Reason: Constipation Pramipexole Dihydrochloride (Pramipexole Di-Hcl 0.25 Mg Tablet) 0.75 mg PO BEDTIME [facility] Last Admin: 10/26/21 21:26 Dose: 0.75 mg Documented by: LILA Prednisone (Prednisone 1 Mg Tablet) 3 mg PO DAILY [facility] Last Admin: 10/27/21 08:09 Dose: 3 mg Documented by: LILA Senna (Sennosides 8.6 Mg Tablet) 8.6 mg PO DAILY PRN PRN Reason: Constipation Sodium Chloride (0.9 % Sodium Chloride Flush 3 Ml Syringe) 3 ml IVFLUSH QSHIFT [facility]PL[facility] Last Admin: 10/27/21 08:07 Dose: 3 ml Documented by: LILA Tamsulosin HCl (Tamsulosin Hcl 0.4 Mg Capsule) 0.8 mg PO DAILY [facility] Last Admin: 10/27/21 08:08 Dose: 0.8 mg Documented by: LILA Trimethoprim/Sulfamethoxazole (Sulfamethox/Trimeth 800/160 Tablet) 1 tab PO MOWEFR ANJALI Last Admin: 10/26/21 10:33 Dose: 1 tab Documented by: MURPHY Labs CBC & Chem 7: 10/26/21 06:24 10/27/21 05:20 Labs: Laboratory Results - last 24 hr 10/27/21 05:20 Anion Gap 8 L Estim Creat Clear Calc 62.9 Estimated GFR > 60 Random Glucose 107 Calcium 8.3 L Microbiology Microbiology Results: Microbiology 10/25/21 15:30 Blood Culture - Preliminary Blood - Venous No growth after 24 hours. 10/25/21 13:51 Blood Culture - Preliminary Blood - Venous No growth after 24 hours. 10/25/21 14:22 Urine Culture - Preliminary Urine clean catch - Urine maciel top Culture in progress. 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 stress-dose steroids in case of critical illness - continue SMX/TMP for PJP prophylaxis # history of CHF with unkonwn EF - euvolemic. conitnue metoprolol + furosemide # atrial flutter - continue amiodarone + metoprolol - conttinue apixaban # VTE ppx - apixaban In my clinical judgment, the patient requires continued hospitalization for the following reasons: IV antibiotics Quality Stroke Does the patient have a stroke diagnosis?: No VTE Prior VTE?: No VTE Risk Level:: Medical - moderate - high VTE Device Contraindication: Treatment Not Indicated VTE Drug Contraindication: N/A - Med Ordered
--- NOTE | 2021-10-27 13:47 | MHC.CM.PN ---
CM MET W/PT'S AT BEDSIDE, PT'S HAD [facility] PAPERWORK FOR HOME HEALTH SERVICES, PT'S REPORTS PT'S PCP ASKED HER TO HAVE OUR HOSPITALIST FILL OUT PAPERWORK BECAUSE HE IS RETIRING SOON, CM WILL DISCUSS W/HOSPITALIST AFTER CONTACTING RASHARD PIERCE FROM THE [facility] TO SEE IF PT EVEN QUALIFIES FOR [facility] PROVIDED SERVICES. CM HAS LEFT MESSAGE W/RASHARD PIERCE AT 1:45PM [phone] [id number], NO ANSWER AND MESSAGE LEFT W/CM CONTACT INFO.
[2021-10-27] MEDS: polyethylene glycoL 3350 17 GM POWD.PACK PO (13:54)
[2021-10-27] MEDS: Finasteride 5 MG TABLET PO (13:55)
--- NOTE | 2021-10-27 14:15 | PC.NURSE ---
FC removed at 1400 today, first DTV is at 1999.
[2021-10-27] MEDS: Albuterol Sulfate 90 MCG 8 GM INHALER 2 PUFF INHALE (18:52)
[2021-10-27] MEDS: Gabapentin 600 MG TABLET PO (21:22)
[2021-10-27] MEDS: Pramipexole Di-HCL 0.25 MG TABLET 0.75 MG PO (21:22)
--- NOTE | 2021-10-27 23:11 | PC.NURSE ---
Pt unable to void,bladder scanned for 350 cc. notified and pt. cathed for 350 cc cloudy quincy colored urine.
[2021-10-28] VITALS (9 sets, daily range): BP systolic 90–123; BP diastolic 55–66; PULSE 75–95; RESP 15–20; TEMP 36.5–37.4; O2SAT 93–96
[2021-10-28] MEDS: Ampicillin Sodium 2 GM in 0.9 % Sodium Chloride 100 ML IV ×4 (00:21→18:02)
--- NOTE | 2021-10-28 05:21 | PC.NURSE ---
pt still unable to void bladder scanned for 407 cc. notified and rizzo cath reinserted.
[2021-10-28] MEDS: predniSONE 1 MG TABLET 3 MG PO (09:12)
[2021-10-28] MEDS: Tamsulosin HCL 0.4 MG CAPSULE 0.8 MG PO (09:12)
[2021-10-28] MEDS: PARoxetine HCL 10 MG TABLET 5 MG PO (09:13)
[2021-10-28] MEDS: Apixaban 5 MG TABLET PO ×2 (09:13→21:00)
[2021-10-28] MEDS: Furosemide 20 MG TABLET PO (09:14)
[2021-10-28] MEDS: Multivitamin TABLET 1 TAB PO (09:14)
[2021-10-28] MEDS: Finasteride 5 MG TABLET PO (09:15)
[2021-10-28] MEDS: 0.9 % Sodium Chloride Flush 3 ML SYRINGE IVFLUSH ×3 (09:15→21:00)
[2021-10-28] MEDS: Sulfamethox/Trimeth 800/160 TABLET 1 TAB PO (09:24)
[2021-10-28] MEDS: Amiodarone HCL 200 MG TABLET 400 MG PO ×2 (09:26→20:59)
--- NOTE | 2021-10-28 11:27 | MHC.CM.PN ---
CURRENTLY AWAITING URINE CULTURES. PLAN IS DC (CURRENTLY TO [facility]) TOMORROW 10/29/21 [facility] UPDATED WITH PLANS IN [facility]SCRIPTS.
[2021-10-28] MEDS: Albuterol Sulfate 90 MCG 8 GM INHALER 2 PUFF INHALE (12:09)
[2021-10-28] MEDS: polyethylene glycoL 3350 17 GM POWD.PACK PO (12:12)
--- NOTE | 2021-10-28 12:32 | MHC.CM.PN ---
CM RECEIVED CALL BACK FROM RASHARD PIERCE TO DISCUSS OPTIONS FOR PT TO RECEIVE [facility] COVERED HOME SERVICES, PER RASHARD PT HAS 2 OPTIONS. 1)SIGN UP FOR [facility] SERVICES AND SEE A [facility] PCP ANNUALLY, THE VA PCP CAN REFER PT FOR HOME HEALTH AND BE APPROVED UP TO 20-30HRS WEEKLY, SERVICES WOULD BE PAID FOR BY VA. 2) CONT TO FILL OUT THE AID & ATTENDANCE FORM, CALL [facility] OFFICE [phone], THIS PROCESS TAKES 6-8 MONTHS AND PT WOULD RECEIVE A STIPEND AND THEN PT WOULD PAY FOR HOME HEALTH THEY SEE FIT. PER RASHARD PIERCE CM CAN GIVE KAREN CONTACT INFO TO PT'S AND HE WILL WALK HER THROUGH PROCESS, CM HAS MET W/PT'S AT BEDSIDE AND PROVIDED HER W/THE ABOVE INFORMATION, THE [facility] 10-10EZ FORM AND RASHARD PIERCE CONTACT INFO. CM WILL FOLLOW UP W/PT'S IN AM.
--- NOTE | 2021-10-28 12:47 | HO.PM.IMPN ---
Subjective Subjective Date of Service: 10/28/21 Interval History: denies any pain no dysuria no N/V Review of Systems Review of Systems: Yes all other systems are reviewed and are negative Physical Exam Vital Signs: Vital Signs: Last Vital Signs Temp 98.4 F 10/28/21 11:24 Pulse 86 10/28/21 12:10 Resp 18 10/28/21 12:10 BP 106/57 L 10/28/21 11:24 Pulse Ox 94 10/28/21 11:24 Oxygen Flow Rate 2 10/25/21 13:24 BMI result Body Mass Index 21.8 Gen: in no acute distress HEENT: sclera anicteric, moist mucus membranes Neck: supple Lungs: clear to auscultation bilaterally Heart: regular rate and rhythm, no murmurs Abd: soft, non-tender, non-distended : Luther in place Ext: no edema Skin: warm/well-perfused Neuro: alert and oriented to self and place Psych: appropriate affect Objective Data Active Medications Acetaminophen (Acetaminophen 325 Mg Tablet) 650 mg PO Q6H PRN PRN Reason: Pain, Mild (Pain Scale 1-3) Albuterol Sulfate (Albuterol Sulfate 90 Mcg 8 Gm Inhaler) 2 puff INHALE Q4H PRN PRN Reason: Wheezing Last Admin: 10/28/21 12:09 Dose: 2 puff Documented by: ALIA Amiodarone HCl (Amiodarone Hcl 200 Mg Tablet) 400 mg PO BID [facility] Last Admin: 10/28/21 09:26 Dose: 400 mg Documented by: FILIPPO Comments: BP 100/57 - per MD Natividad caicedo to give Apixaban (Apixaban 5 Mg Tablet) 5 mg PO BID [facility] Last Admin: 10/28/21 09:13 Dose: 5 mg Documented by: FILIPPO Docusate Sodium (Docusate Sodium 100 Mg Capsule) 100 mg PO DAILY PRN PRN Reason: Constipation Finasteride (Finasteride 5 Mg Tablet) 5 mg PO DAILY [facility] Last Admin: 10/28/21 09:15 Dose: 5 mg Documented by: FILIPPO Furosemide (Furosemide 20 Mg Tablet) 20 mg PO DAILY [facility]; Protocol Last Admin: 10/28/21 09:14 Dose: 20 mg Documented by: FILIPPO Gabapentin (Gabapentin 600 Mg Tablet) 600 mg PO BEDTIME [facility] Last Admin: 10/27/21 21:22 Dose: 600 mg Documented by: LILA Ampicillin Sodium 2 gm/ Sodium (Chloride) 100 mls @ 100 mls/hr IV Q6H [facility] Last Admin: 10/28/21 12:12 Dose: 100 mls/hr Documented by: FILIPPO Metoprolol Succinate (Metoprolol Succinate Er 25 Mg Tab.Er.24h) 75 mg PO DAILY [facility]; Protocol Last Admin: 10/28/21 09:26 Dose: Not Given Documented by: FILIPPO Non-Admin Reason: Decreased Blood Pressure Comments: held d/t BP 100/57 - notified MD conroy Multivitamins/Vitamin C (Multivitamin Tablet) 1 tab PO DAILY [facility] Last Admin: 10/28/21 09:14 Dose: 1 tab Documented by: FILIPPO Non-Formulary Medication (Rotigotine [Neupro]) 1 patch TOPICAL DAILY [facility] Nystatin (Nystatin Cream 15 Gm Tube) 1 appl TOPICAL QID PRN; Protocol PRN Reason: Rash Ondansetron HCl (Ondansetron Hcl 4 Mg/2 Ml Vial) 4 mg IVPUSH Q8H PRN PRN Reason: Nausea and Vomiting Paroxetine HCl (Paroxetine Hcl 10 Mg Tablet) 5 mg PO DAILY [facility] Last Admin: 10/28/21 09:13 Dose: 5 mg Documented by: FILIPPO Pharmacy Consult (Consult Rx Perform Med Rec) 1 each MISCELLANE ONCE PRN PRN Reason: Consult order Polyethylene Glycol (Polyethylene Glycol 3350 17 Gm Powd.Pack) 17 gm PO DAILY PRN PRN Reason: Constipation Last Admin: 10/28/21 12:12 Dose: 17 gm Documented by: FILIPPO Pramipexole Dihydrochloride (Pramipexole Di-Hcl 0.25 Mg Tablet) 0.75 mg PO BEDTIME [facility] Last Admin: 10/27/21 21:22 Dose: 0.75 mg Documented by: LILA Prednisone (Prednisone 1 Mg Tablet) 3 mg PO DAILY [facility] Last Admin: 10/28/21 09:12 Dose: 3 mg Documented by: FILIPPO Senna (Sennosides 8.6 Mg Tablet) 8.6 mg PO DAILY PRN PRN Reason: Constipation Sodium Chloride (0.9 % Sodium Chloride Flush 3 Ml Syringe) 3 ml IVFLUSH QSHIFT [facility] Last Admin: 10/28/21 09:15 Dose: 3 ml Documented by: FILIPPO Tamsulosin HCl (Tamsulosin Hcl 0.4 Mg Capsule) 0.8 mg PO DAILY [facility] Last Admin: 10/28/21 09:12 Dose: 0.8 mg Documented by: FILIPPO Trimethoprim/Sulfamethoxazole (Sulfamethox/Trimeth 800/160 Tablet) 1 tab PO MOWEFR [facility] Last Admin: 10/28/21 09:24 Dose: 1 tab Documented by: FILIPPO Labs CBC & Chem 7: 10/26/21 06:24 10/27/21 05:20 Microbiology Microbiology Results: Microbiology 10/25/21 14:22 Urine Culture - Preliminary Urine clean catch - Urine maciel top Culture in progress. 10/25/21 15:30 Blood Culture - Preliminary Blood - Venous No growth after 48 hours. 10/25/21 13:51 Blood Culture - Preliminary Blood - Venous No growth after 48 hours. 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 stress-dose steroids in case of critical illness - continue SMX/TMP for PJP prophylaxis # history of CHF with unkonwn EF - euvolemic. conitnue metoprolol + furosemide # atrial flutter - continue amiodarone + metoprolol - cottinue apixaban # VTE ppx - apixaban # dispo - plan return to SNF for [facility] In my clinical judgment, the patient requires continued hospitalization for the following reasons: IV antibiotics Quality Stroke Does the patient have a stroke diagnosis?: No VTE Prior VTE?: No VTE Risk Level:: Medical - moderate - high VTE Device Contraindication: Treatment Not Indicated VTE Drug Contraindication: N/A - Med Ordered
[2021-10-28] MEDS: Acetaminophen 325 MG TABLET 650 MG PO (18:00)
[2021-10-28] MEDS: Gabapentin 600 MG TABLET PO (20:59)
[2021-10-28] MEDS: Pramipexole Di-HCL 0.25 MG TABLET 0.75 MG PO (21:00)
[2021-10-29] VITALS (8 sets, daily range): BP systolic 92–127; BP diastolic 56–67; PULSE 71–97; RESP 17–20; TEMP 36.8–37.7; O2SAT 93–98
[2021-10-29] MEDS: Ampicillin Sodium 2 GM in 0.9 % Sodium Chloride 100 ML IV ×5 (01:00→23:42)
[2021-10-29 05:56] LABS: Hematocrit 34.2 % (42.0-52.0); Hemoglobin 10.7 g/dl (14.0-18.0); Mean Corpuscular HGB Conc 31.3 g/dl (31.0-36.0); Mean Corpuscular Hemoglobin 29.4 pg (27.0-33.0); Mean Platelet Volume 9.4 fL (9.4-12.4); Platelet Count 217 X10*3/uL (160-400); Red Blood Count 3.64 X10*6/uL (4.60-5.80); Red Cell Distribution Width 14.8 % (11.0-16.0); White Blood Count 9.3 X10*3/uL (4.8-10.8)
[2021-10-29 06:18] LABS: Anion Gap 11 (12-20); Blood Urea Nitrogen 15 mg/dL (9-16); C Reactive Protein 11.05 mg/dL (< or = 0.50); Calcium 8.1 mg/dL (8.4-10.2); Carbon Dioxide 27 mmol/L (22-29); Chloride 107 mmol/L (96-108); Creatinine Clr Calc Pharmacy 65.7; Estimated Glomerular Filt Rate > 60; Glucose Random 100 mg/dL (60-115); Potassium 4.1 mmol/L (3.3-5.1); Sodium 141 mmol/L (135-145)
--- NOTE | 2021-10-29 08:39 | PC.NURSE ---
Automated BP 92/56, manual BP 100/58. Pulse 97. Dr Henson notified. advised to hold furosemide and give metoprolol. will continue to monitor.
[2021-10-29] MEDS: PARoxetine HCL 10 MG TABLET 5 MG PO (08:47)
[2021-10-29] MEDS: 0.9 % Sodium Chloride Flush 3 ML SYRINGE IVFLUSH ×4 (08:47→23:42)
[2021-10-29] MEDS: Multivitamin TABLET 1 TAB PO (08:48)
[2021-10-29] MEDS: Metoprolol Succinate ER 25 MG TAB.ER.24H 75 MG PO (08:49)
[2021-10-29] MEDS: Apixaban 5 MG TABLET PO ×2 (08:50→19:40)
[2021-10-29] MEDS: predniSONE 1 MG TABLET 3 MG PO (08:50)
[2021-10-29] MEDS: Finasteride 5 MG TABLET PO (08:50)
[2021-10-29] MEDS: Amiodarone HCL 200 MG TABLET 400 MG PO ×2 (08:51→19:40)
[2021-10-29] MEDS: Tamsulosin HCL 0.4 MG CAPSULE 0.8 MG PO (08:51)
--- NOTE | 2021-10-29 10:50 | P.CNNE_ITS ---
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 He was alert and awake at this time and stated that he did not have any tremor. He said that he was able to walk but with a walker. This could not be independently confirmed. Review of Systems Review of Systems: No recent fall or seizure-like episode PMF Past Medical History Medical History Anxiety Atrial fibrillation BPH (benign prostatic hyperplasia) Chronic indwelling Luther catheter Congestive heart failure (CHF) Current use of termite helper anticoagulation Dysphagia Obstructive sleep apnea Restless leg syndrome Family History Family history: reviewed and not pertinent Social History Social History Household Members: Other Housing: [facility] Do you presently have visiting nurse or other home services: No Patient Tobacco Use Status: Tobacco use Unknown service: Yes Current occupational status: retired Meds Allergies Allergy/AdvReac Type Severity Reaction Status Date / Time Penicillins [PCN] Allergy Unknown Verified 10/25/21 13:29 Active Medications: Current Medications Acetaminophen (Acetaminophen 325 Mg Tablet) 650 mg PO Q6H PRN PRN Reason: Pain, Mild (Pain Scale 1-3) Last Admin: 10/28/21 18:00 Dose: 650 mg Documented by: Albuterol Sulfate (Albuterol Sulfate 90 Mcg 8 Gm Inhaler) 2 puff INHALE Q4H PRN PRN Reason: Wheezing Last Admin: 10/28/21 12:09 Dose: 2 puff Documented by: Amiodarone HCl (Amiodarone Hcl 200 Mg Tablet) 400 mg PO BID [facility] Last Admin: 10/29/21 08:51 Dose: 400 mg Documented by: Apixaban (Apixaban 5 Mg Tablet) 5 mg PO BID [facility] Last Admin: 10/29/21 08:50 Dose: 5 mg Documented by: Docusate Sodium (Docusate Sodium 100 Mg Capsule) 100 mg PO DAILY PRN PRN Reason: Constipation Finasteride (Finasteride 5 Mg Tablet) 5 mg PO DAILY [facility] Last Admin: 10/29/21 08:50 Dose: 5 mg Documented by: Furosemide (Furosemide 20 Mg Tablet) 20 mg PO DAILY [facility]; Protocol Last Admin: 10/29/21 08:52 Dose: Not Given Documented by: Gabapentin (Gabapentin 600 Mg Tablet) 600 mg PO BEDTIME [facility] Last Admin: 10/28/21 20:59 Dose: 600 mg Documented by: Ampicillin Sodium 2 gm/ Sodium (Chloride) 100 mls @ 100 mls/hr IV Q6H [facility] Last Infusion: 10/29/21 06:18 Dose: Infused Documented by: Metoprolol Succinate (Metoprolol Succinate Er 25 Mg Tab.Er.24h) 75 mg PO DAILY [facility]; Protocol Last Admin: 10/29/21 08:49 Dose: 75 mg Documented by: Multivitamins/Vitamin C (Multivitamin Tablet) 1 tab PO DAILY [facility] Last Admin: 10/29/21 08:48 Dose: 1 tab Documented by: Non-Formulary Medication (Rotigotine [Neupro]) 1 patch TOPICAL DAILY [facility] Nystatin (Nystatin Cream 15 Gm Tube) 1 appl TOPICAL QID PRN; Protocol PRN Reason: Rash Ondansetron HCl (Ondansetron Hcl 4 Mg/2 Ml Vial) 4 mg IVPUSH Q8H PRN PRN Reason: Nausea and Vomiting Paroxetine HCl (Paroxetine Hcl 10 Mg Tablet) 5 mg PO DAILY [facility] Last Admin: 10/29/21 08:47 Dose: 5 mg Documented by: Pharmacy Consult (Consult Rx Perform Med Rec) 1 each MISCELLANE ONCE PRN PRN Reason: Consult order Polyethylene Glycol (Polyethylene Glycol 3350 17 Gm Powd.Pack) 17 gm PO DAILY PRN PRN Reason: Constipation Last Admin: 10/28/21 12:12 Dose: 17 gm Documented by: Pramipexole Dihydrochloride (Pramipexole Di-Hcl 0.25 Mg Tablet) 0.75 mg PO BEDTIME [facility] Last Admin: 10/28/21 21:00 Dose: 0.75 mg Documented by: Prednisone (Prednisone 1 Mg Tablet) 3 mg PO DAILY [facility] Last Admin: 10/29/21 08:50 Dose: 3 mg Documented by: Senna (Sennosides 8.6 Mg Tablet) 8.6 mg PO DAILY PRN PRN Reason: Constipation Sodium Chloride (0.9 % Sodium Chloride Flush 3 Ml Syringe) 3 ml IVFLUSH QSHIFT [facility] Last Admin: 10/29/21 08:47 Dose: 3 ml Documented by: Tamsulosin HCl (Tamsulosin Hcl 0.4 Mg Capsule) 0.8 mg PO DAILY [facility] Last Admin: 10/29/21 08:51 Dose: 0.8 mg Documented by: Trimethoprim/Sulfamethoxazole (Sulfamethox/Trimeth 800/160 Tablet) 1 tab PO MOWEFR [facility] Last Admin: 10/28/21 09:24 Dose: 1 tab Documented by: Home Medications Medication Instructions Recorded Confirmed Last Taken Type acetaminophen 650 mg 650 mg PO Q4H PRN 10/25/21 10/25/21 Unknown History tablet,extended release albuterol sulfate 90 mcg/actuation 2 inh INHALATION Q4-6H PRN 10/25/21 10/25/21 Unknown History breath activated powder inhaler amiodarone 400 mg tablet 400 mg PO BID 10/25/21 10/25/21 Unknown History apixaban 5 mg tablet (Eliquis) 1 tab PO BID 10/25/21 10/25/21 Unknown History calcium carbonate 600 mg-vitamin 1 tab PO DAILY 10/25/21 10/25/21 Unknown History D3 5 mcg (200 unit) tablet furosemide 20 mg tablet 20 mg PO DAILY 10/25/21 10/25/21 Unknown History gabapentin 600 mg tablet 600 mg PO BEDTIME 10/25/21 10/25/21 Unknown History metoprolol succinate 25 mg 75 mg PO DAILY 10/25/21 10/25/21 Unknown History tablet,extended release 24 hr multivitamin 1 tab PO DAILY 10/25/21 10/25/21 Unknown History nystatin 100,000 unit/gram topical 1 appl TOPICAL QID PRN 10/25/21 10/25/21 Unknown History cream paroxetine HCl 10 mg tablet 5 mg PO DAILY 10/25/21 10/25/21 Unknown History polyethylene glycol 3350 17 gram 17 g PO DAILY PRN 10/25/21 10/25/21 Unknown History oral powder packet pramipexole 0.75 mg tablet 0.75 mg PO BEDTIME 10/25/21 10/25/21 Unknown History prednisone 1 mg tablet 3 mg PO DAILY 10/25/21 10/25/21 Unknown History rotigotine 3 mg/24 hour 1 patch TOPICAL DAILY 10/25/21 10/25/21 Unknown History transdermal 24 hour patch (Neupro) sennosides 8.6 mg tablet (senna) 8.6 mg PO DAILY PRN 10/25/21 10/25/21 Unknown History sulfamethoxazole 800 1 tab PO MOWEFR 10/25/21 10/25/21 Unknown History mg-trimethoprim 160 mg tablet tamsulosin 0.4 mg capsule 2 cap PO DAILY 10/25/21 10/25/21 Unknown History Physical Exam Vital Signs: Vital Signs: Last Vital Signs Temp 99.8 F 10/29/21 07:24 Pulse 97 10/29/21 10:42 Resp 20 10/29/21 07:24 BP 100/58 L 10/29/21 10:42 Pulse Ox 94 10/29/21 07:24 Oxygen Flow Rate 2 10/25/21 13:24 BMI result Body Mass Index 21.8 Neuro: Other: He is alert and awake with normal spontaneity of speech fluency comprehension and affect. There was moderate bilateral hand tremor with element of asterisks. Moderate rigidity in upper extremities were noted. Deep tendon reflexes are absent with flexor plantars. Arthritic changes were noted Results Labs CBC & Chem 7: 10/29/21 05:47 10/29/21 05:47 Labs: Short CBC 10/29/21 Range/Units 05:47 WBC 9.3 (4.8-10.8) X10*3/uL Hgb 10.7 L (14.0-18.0) g/dl Hct 34.2 L (42.0-52.0) % Plt Count 217 (160-400) X10*3/uL BMP 10/29/21 05:47 Sodium 141 Potassium 4.1 Chloride 107 Carbon Dioxide 27 BUN 15 Creatinine 0.88 Calcium 8.1 L Microbiology Microbiology Results: Microbiology 10/25/21 14:22 Urine clean catch - Urine maciel top Urine Culture - Preliminary Culture in progress. 10/25/21 15:30 Blood - Venous Blood Culture - Preliminary No growth after 48 hours. 10/25/21 13:51 Blood - Venous Blood Culture - Preliminary No growth after 48 hours. 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 As far as bradykinesia and tremor are concerned, this could happen and presence of metabolic toxic encephalopathy. I would have avoid making any definitive diagnosis of Parkinson's at this time and that should be addressed once he was well enough and as an outpatient. Procedures Date of Service Date of Service: 10/29/21
--- NOTE | 2021-10-29 11:29 | P.PNIM_ITS ---
Subjective Subjective Date of Service: 10/29/21 Interval History: No complaints no fever Review of Systems Review of Systems: Yes all other systems are reviewed and are negative Physical Exam Vital Signs: Vital Signs: Last Vital Signs Temp 99.8 F 10/29/21 07:24 Pulse 97 10/29/21 10:42 Resp 20 10/29/21 07:24 BP 100/58 L 10/29/21 10:42 Pulse Ox 94 10/29/21 07:24 Oxygen Flow Rate 2 10/25/21 13:24 BMI result Body Mass Index 21.8 Gen: in no acute distress HEENT: sclera anicteric, moist mucus membranes Neck: supple Lungs: clear to auscultation bilaterally Heart: regular rate and rhythm, no murmurs Abd: soft, non-tender, non-distended : Luther in place Ext: no edema Skin: warm/well-perfused Neuro: alert and oriented to self and place, tremor upper extremities Psych: appropriate affect Objective Data Active Medications Acetaminophen (Acetaminophen 325 Mg Tablet) 650 mg PO Q6H PRN PRN Reason: Pain, Mild (Pain Scale 1-3) Last Admin: 10/28/21 18:00 Dose: 650 mg Documented by: FILIPPO Albuterol Sulfate (Albuterol Sulfate 90 Mcg 8 Gm Inhaler) 2 puff INHALE Q4H PRN PRN Reason: Wheezing Last Admin: 10/28/21 12:09 Dose: 2 puff Documented by: ALIA Amiodarone HCl (Amiodarone Hcl 200 Mg Tablet) 400 mg PO BID [facility] Last Admin: 10/29/21 08:51 Dose: 400 mg Documented by: TENZIN Apixaban (Apixaban 5 Mg Tablet) 5 mg PO BID [facility] Last Admin: 10/29/21 08:50 Dose: 5 mg Documented by: TENZIN Docusate Sodium (Docusate Sodium 100 Mg Capsule) 100 mg PO DAILY PRN PRN Reason: Constipation Finasteride (Finasteride 5 Mg Tablet) 5 mg PO DAILY [facility] Last Admin: 10/29/21 08:50 Dose: 5 mg Documented by: TENZIN Furosemide (Furosemide 20 Mg Tablet) 20 mg PO DAILY [facility]; Protocol Last Admin: 10/29/21 08:52 Dose: Not Given Documented by: TENZIN Non-Admin Reason: per MD due to BP Gabapentin (Gabapentin 600 Mg Tablet) 600 mg PO BEDTIME [facility] Last Admin: 10/28/21 20:59 Dose: 600 mg Documented by: TIBURCIO Ampicillin Sodium 2 gm/ Sodium (Chloride) 100 mls @ 100 mls/hr IV Q6H [facility] Last Infusion: 10/29/21 06:18 Dose: 0 mls/hr Documented by: TIBURCIO Metoprolol Succinate (Metoprolol Succinate Er 25 Mg Tab.Er.24h) 75 mg PO DAILY [facility]; Protocol Last Admin: 10/29/21 08:49 Dose: 75 mg Documented by: TENZIN Multivitamins/Vitamin C (Multivitamin Tablet) 1 tab PO DAILY [facility] Last Admin: 10/29/21 08:48 Dose: 1 tab Documented by: TENZIN Non-Formulary Medication (Rotigotine [Neupro]) 1 patch TOPICAL DAILY [facility] Nystatin (Nystatin Cream 15 Gm Tube) 1 appl TOPICAL QID PRN; Protocol PRN Reason: Rash Ondansetron HCl (Ondansetron Hcl 4 Mg/2 Ml Vial) 4 mg IVPUSH Q8H PRN PRN Reason: Nausea and Vomiting Paroxetine HCl (Paroxetine Hcl 10 Mg Tablet) 5 mg PO DAILY [facility] Last Admin: 10/29/21 08:47 Dose: 5 mg Documented by: TENZIN Pharmacy Consult (Consult Rx Perform Med Rec) 1 each MISCELLANE ONCE PRN PRN Reason: Consult order Polyethylene Glycol (Polyethylene Glycol 3350 17 Gm Powd.Pack) 17 gm PO DAILY PRN PRN Reason: Constipation Last Admin: 10/28/21 12:12 Dose: 17 gm Documented by: FILIPPO Pramipexole Dihydrochloride (Pramipexole Di-Hcl 0.25 Mg Tablet) 0.75 mg PO BEDTIME [facility] Last Admin: 10/28/21 21:00 Dose: 0.75 mg Documented by: TIBURCIO Prednisone (Prednisone 1 Mg Tablet) 3 mg PO DAILY [facility] Last Admin: 10/29/21 08:50 Dose: 3 mg Documented by: TENZIN Senna (Sennosides 8.6 Mg Tablet) 8.6 mg PO DAILY PRN PRN Reason: Constipation Sodium Chloride (0.9 % Sodium Chloride Flush 3 Ml Syringe) 3 ml IVFLUSH QSHIFT [facility] Last Admin: 10/29/21 08:47 Dose: 3 ml Documented by: TENZIN Tamsulosin HCl (Tamsulosin Hcl 0.4 Mg Capsule) 0.8 mg PO DAILY [facility] Last Admin: 10/29/21 08:51 Dose: 0.8 mg Documented by: TENZIN Trimethoprim/Sulfamethoxazole (Sulfamethox/Trimeth 800/160 Tablet) 1 tab PO MOWEFR [facility] Last Admin: 10/28/21 09:24 Dose: 1 tab Documented by: FILIPPO Labs CBC & Chem 7: 10/29/21 05:47 10/29/21 05:47 Labs: Laboratory Results - last 24 hr 10/29/21 10/29/21 05:47 05:47 MCV 94.0 MCH 29.4 MCHC 31.3 RDW 14.8 Plt Count 217 MPV 9.4 Absolute Nucleated RBC 0.000 Nucleated RBC % (auto) 0.0 Anion Gap 11 L Estim Creat Clear Calc 65.7 Estimated GFR > 60 Random Glucose 100 Calcium 8.1 L C-Reactive Protein 11.05 H Microbiology Microbiology Results: Microbiology 10/25/21 14:22 Urine Culture - Final Urine clean catch - Urine maciel top Enterococcus faecalis Pseudomonas aeruginosa Assessment and Plan (1) Urinary tract infection: Status: Acute (2) Encephalopathy: Status: Acute Plan hospital d#4 81yo M with atrial flutter, giant cell artiritis, BPH, CHF, HTN [place] [facility] [place] for Enterococcus faecalis UTI and sent to STR presenting with fever, admitted for UTI # UTI, complicated [indwelling Luther] - continue ampicillin d#4 for Enterococcus faecalis; also growing FQ-resistant Pseudomonas aeruginosa; will discuss with ID # encephalopathy secondary to infection - resolving # tremor - Neuro consulted, outpt workup # 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 stress-dose steroids in case of critical illness - continue SMX/TMP for PJP prophylaxis # history of CHF with unkonwn EF - euvolemic. conitnue metoprolol + furosemide # atrial flutter - continue amiodarone + metoprolol - continue apixaban # VTE ppx - apixaban # dispo - plan return to SNF for [facility] In my clinical judgment, the patient requires continued hospitalization for the following reasons: IV antibiotics Quality Stroke Does the patient have a stroke diagnosis?: No VTE Prior VTE?: No VTE Risk Level:: Medical - moderate - high VTE Device Contraindication: Treatment Not Indicated VTE Drug Contraindication: N/A - Med Ordered
--- NOTE | 2021-10-29 12:54 | MHC.CM.PN ---
CURRENTLY AWAITING ID INPUT FOR ANTIBIOTIC URINE GROWING PSEUDOMONOS (RESISTANT TO LEVAQUIN) MAY NEED PICC [facility] UPDATED. (IN ROOM) ALSO UPDATED. IMM 10/29 IN CHART
[2021-10-29] MEDS: Docusate Sodium 100 MG CAPSULE PO (13:02)
--- NOTE | 2021-10-29 13:40 | PM.UROCN ---
History of Present Illness Consult details Consult date: 10/28/21 Narrative: 81-year-old male admitted to hospital for low-grade temperatures Chronic indwelling Luther catheter Had been placed wall at [facility] Has followed with Urology at [facility] in [place] Recommendation for assessment regarding voiding trial He will contact his treating urologist when discharged Review of Systems Constitutional: Constitutional: Reports as per HPI and Reports no additional constitutional complaints Cardiovascular: Cardiovascular: Reports as per HPI and Reports no additional cardiovascular complaints Respiratory: Respiratory: Reports as per HPI and Reports no additional respiratory complaints Gastrointestinal: Gastrointestinal: Reports as per HPI and Reports no additional gastrointestinal complaints Genitourinary: Genitourinary: Reports as per HPI Musculoskeletal: Musculoskeletal: Reports no additional musculoskeletal complaints and Reports as per HPI Neurologic: Reports system reviewed and no additional complaints, except as documented and Reports as per HPI COUNT INCLUDES [facility] Past Medical History Medical History (Updated 10/29/21 @ 13:42 by Dm Monique MD) Anxiety Atrial fibrillation BPH (benign prostatic hyperplasia) Chronic indwelling Luther catheter Congestive heart failure (CHF) Current use of termite helper anticoagulation Dysphagia Obstructive sleep apnea Restless leg syndrome Family History Family history: reviewed and not pertinent Social History Social History Household Members: Other Housing: Snf Do you presently have visiting nurse or other home services: No Patient Tobacco Use Status: Tobacco use Unknown service: Yes Current occupational status: retired [employer] Allergies Allergy/AdvReac Type Severity Reaction Status Date / Time Penicillins [PCN] Allergy Unknown Verified 10/25/21 13:29 Active Medications: Current Medications Acetaminophen (Acetaminophen 325 Mg Tablet) 650 mg PO Q6H PRN PRN Reason: Pain, Mild (Pain Scale 1-3) Last Admin: 10/28/21 18:00 Dose: 650 mg Documented by: Albuterol Sulfate (Albuterol Sulfate 90 Mcg 8 Gm Inhaler) 2 puff INHALE Q4H PRN PRN Reason: Wheezing Last Admin: 10/28/21 12:09 Dose: 2 puff Documented by: Amiodarone HCl (Amiodarone Hcl 200 Mg Tablet) 400 mg PO BID [facility] Last Admin: 10/29/21 08:51 Dose: 400 mg Documented by: Apixaban (Apixaban 5 Mg Tablet) 5 mg PO BID [facility] Last Admin: 10/29/21 08:50 Dose: 5 mg Documented by: Docusate Sodium (Docusate Sodium 100 Mg Capsule) 100 mg PO DAILY PRN PRN Reason: Constipation Last Admin: 10/29/21 13:02 Dose: 100 mg Documented by: Finasteride (Finasteride 5 Mg Tablet) 5 mg PO DAILY [facility] Last Admin: 10/29/21 08:50 Dose: 5 mg Documented by: Furosemide (Furosemide 20 Mg Tablet) 20 mg PO DAILY [facility]; Protocol Last Admin: 10/29/21 08:52 Dose: Not Given Documented by: Gabapentin (Gabapentin 600 Mg Tablet) 600 mg PO BEDTIME [facility] Last Admin: 10/28/21 20:59 Dose: 600 mg Documented by: Ampicillin Sodium 2 gm/ Sodium (Chloride) 100 mls @ 100 mls/hr IV Q6H [facility] Last Admin: 10/29/21 12:49 Dose: 100 mls/hr Documented by: Meropenem 1 gm/ Sodium (Chloride) 100 mls @ 200 mls/hr IV Q8H [facility] Metoprolol Succinate (Metoprolol Succinate Er 25 Mg Tab.Er.24h) 75 mg PO DAILY [facility]; Protocol Last Admin: 10/29/21 08:49 Dose: 75 mg Documented by: Multivitamins/Vitamin C (Multivitamin Tablet) 1 tab PO DAILY [facility] Last Admin: 10/29/21 08:48 Dose: 1 tab Documented by: Non-Formulary Medication (Rotigotine [Neupro]) 1 patch TOPICAL DAILY [facility] Nystatin (Nystatin Cream 15 Gm Tube) 1 appl TOPICAL QID PRN; Protocol PRN Reason: Rash Ondansetron HCl (Ondansetron Hcl 4 Mg/2 Ml Vial) 4 mg IVPUSH Q8H PRN PRN Reason: Nausea and Vomiting Paroxetine HCl (Paroxetine Hcl 10 Mg Tablet) 5 mg PO DAILY [facility] Last Admin: 10/29/21 08:47 Dose: 5 mg Documented by: Pharmacy Consult (Consult Rx Perform Med Rec) 1 each MISCELLANE ONCE PRN PRN Reason: Consult order Polyethylene Glycol (Polyethylene Glycol 3350 17 Gm Powd.Pack) 17 gm PO DAILY PRN PRN Reason: Constipation Last Admin: 10/28/21 12:12 Dose: 17 gm Documented by: Pramipexole Dihydrochloride (Pramipexole Di-Hcl 0.25 Mg Tablet) 0.75 mg PO BEDTIME [facility] Last Admin: 10/28/21 21:00 Dose: 0.75 mg Documented by: Prednisone (Prednisone 1 Mg Tablet) 3 mg PO DAILY [facility] Last Admin: 10/29/21 08:50 Dose: 3 mg Documented by: Senna (Sennosides 8.6 Mg Tablet) 8.6 mg PO DAILY PRN PRN Reason: Constipation Sodium Chloride (0.9 % Sodium Chloride Flush 3 Ml Syringe) 3 ml IVFLUSH QSHIFT [facility] Last Admin: 10/29/21 08:47 Dose: 3 ml Documented by: Tamsulosin HCl (Tamsulosin Hcl 0.4 Mg Capsule) 0.8 mg PO DAILY [facility] Last Admin: 10/29/21 08:51 Dose: 0.8 mg Documented by: Trimethoprim/Sulfamethoxazole (Sulfamethox/Trimeth 800/160 Tablet) 1 tab PO MOWEFR [facility] Last Admin: 10/28/21 09:24 Dose: 1 tab Documented by: Home Medications Medication Instructions Recorded Confirmed Last Taken Type acetaminophen 650 mg 650 mg PO Q4H PRN 10/25/21 10/25/21 Unknown History tablet,extended release albuterol sulfate 90 mcg/actuation 2 inh INHALATION Q4-6H PRN 10/25/21 10/25/21 Unknown History breath activated powder inhaler amiodarone 400 mg tablet 400 mg PO BID 10/25/21 10/25/21 Unknown History apixaban 5 mg tablet (Eliquis) 1 tab PO BID 10/25/21 10/25/21 Unknown History calcium carbonate 600 mg-vitamin 1 tab PO DAILY 10/25/21 10/25/21 Unknown History D3 5 mcg (200 unit) tablet furosemide 20 mg tablet 20 mg PO DAILY 10/25/21 10/25/21 Unknown History gabapentin 600 mg tablet 600 mg PO BEDTIME 10/25/21 10/25/21 Unknown History metoprolol succinate 25 mg 75 mg PO DAILY 10/25/21 10/25/21 Unknown History tablet,extended release 24 hr multivitamin 1 tab PO DAILY 10/25/21 10/25/21 Unknown History nystatin 100,000 unit/gram topical 1 appl TOPICAL QID PRN 10/25/21 10/25/21 Unknown History cream paroxetine HCl 10 mg tablet 5 mg PO DAILY 10/25/21 10/25/21 Unknown History polyethylene glycol 3350 17 gram 17 g PO DAILY PRN 10/25/21 10/25/21 Unknown History oral powder packet pramipexole 0.75 mg tablet 0.75 mg PO BEDTIME 10/25/21 10/25/21 Unknown History prednisone 1 mg tablet 3 mg PO DAILY 10/25/21 10/25/21 Unknown History rotigotine 3 mg/24 hour 1 patch TOPICAL DAILY 10/25/21 10/25/21 Unknown History transdermal 24 hour patch (Neupro) sennosides 8.6 mg tablet (senna) 8.6 mg PO DAILY PRN 10/25/21 10/25/21 Unknown History sulfamethoxazole 800 1 tab PO MOWEFR 10/25/21 10/25/21 Unknown History mg-trimethoprim 160 mg tablet tamsulosin 0.4 mg capsule 2 cap PO DAILY 10/25/21 10/25/21 Unknown History Physical Exam Vital Signs: Vital Signs: Last Vital Signs Temp 99.2 F 10/29/21 11:47 Pulse 91 10/29/21 11:47 Resp 20 10/29/21 11:47 BP 127/67 10/29/21 11:47 Pulse Ox 95 10/29/21 11:47 Oxygen Flow Rate 2 10/25/21 13:24 BMI result Body Mass Index 21.8 Const: General: cooperative, healthy appearing, comfortable and no acute distress Orientation/consciousness: patient oriented x3 HEENT: Face and sinus: Yes normal facial exam Mouth: moist mucous membranes Neck: Neck: Yes normal visual inspection, Yes full ROM and Yes trachea midline Chest: Chest palpation & inspection: normal inspection of the chest Resp: Effort & Inspection: normal respiratory effort, able to speak in complete sentences and no respiratory distress GI: Inspection: Yes normal to inspection Back/Spine/Pelvis: Cervical Spine: normal cervical lordosis Thoracic/Lumbar Spine: thoracic and lumbar spine normal to inspection Skin: General skin exam: no rashes or lesions noted Neuro: General: patient oriented x3, tone normal and moves all extremities Extrem: General: Yes normal to inspection and Yes capillary refill normal Results Labs Result diagrams: 10/29/21 05:47 10/29/21 05:47 Labs: Abnormal lab results 10/29/21 10/29/21 Range/Units 05:47 05:47 RBC 3.64 L (4.60-5.80) X10*6/uL Hgb 10.7 L (14.0-18.0) g/dl Hct 34.2 L (42.0-52.0) % Anion Gap 11 L (12-20) Calcium 8.1 L (8.4-10.2) mg/dL C-Reactive Protein 11.05 H (< or = 0.50) mg/dL Short CBC 10/29/21 Range/Units 05:47 WBC 9.3 (4.8-10.8) X10*3/uL Hgb 10.7 L (14.0-18.0) g/dl Hct 34.2 L (42.0-52.0) % Plt Count 217 (160-400) X10*3/uL BMP 10/29/21 05:47 Sodium 141 Potassium 4.1 Chloride 107 Carbon Dioxide 27 BUN 15 Creatinine 0.88 Calcium 8.1 L Urine 10/25/21 Range/Units 13:59 Urine Color YELLOW Urine Appearance CLOUDY Urine pH 5.5 (5.0-8.0) Ur Specific [place] 1.025 (1.005-1.025) Urine Protein 1+ H (NEG-TRACE) MG/DL Urine Glucose (UA) NEG (NEG) MG/DL All other labs normal. Assessment and Plan (1) Urinary tract infection: Status: Acute (2) Chronic indwelling Luther catheter: Status: Acute Plan Would benefit from protection with indwelling Luther catheter Follow up with treating urologist Procedures Date of Service Date of Service: 10/28/21
[2021-10-29] MEDS: Gabapentin 600 MG TABLET PO (19:41)
[2021-10-29] MEDS: Pramipexole Di-HCL 0.25 MG TABLET 0.75 MG PO (19:41)
[2021-10-30 03:15] VITALS: BP 119/60; PULSE 74; RESP 17; TEMP 36.6; O2SAT 94
[2021-10-30] MEDS: Ampicillin Sodium 2 GM in 0.9 % Sodium Chloride 100 ML IV ×2 (05:11→12:53)
[2021-10-30 08:00] VITALS: BP 95/58; PULSE 76; RESP 16; TEMP 36.4; O2SAT 92
[2021-10-30] MEDS: Furosemide 20 MG TABLET PO (09:17)
[2021-10-30] MEDS: Finasteride 5 MG TABLET PO (09:17)
[2021-10-30] MEDS: predniSONE 1 MG TABLET 3 MG PO (09:17)
[2021-10-30] MEDS: PARoxetine HCL 10 MG TABLET 5 MG PO (09:17)
[2021-10-30] MEDS: Amiodarone HCL 200 MG TABLET 400 MG PO (09:18)
[2021-10-30] MEDS: Tamsulosin HCL 0.4 MG CAPSULE 0.8 MG PO (09:18)
[2021-10-30] MEDS: Apixaban 5 MG TABLET PO (09:18)
[2021-10-30] MEDS: 0.9 % Sodium Chloride Flush 3 ML SYRINGE IVFLUSH ×2 (09:18→14:56)
[2021-10-30] MEDS: Multivitamin TABLET 1 TAB PO (09:18)
[2021-10-30] MEDS: Sulfamethox/Trimeth 800/160 TABLET 1 TAB PO (09:23)
[2021-10-30 12:00] VITALS: BP 115/65; PULSE 75; RESP 16; TEMP 36.4; O2SAT 94
--- NOTE | 2021-10-30 12:10 | HO.MIDLINE ---
PICC Line Insertion MIDLINE INSERTION Diagnosis: UTI Indication: COORDINATING PRODUCER IV ANTIBIOTICS Pertinent Labs: REVIEWED Technique: Using sterile technique including cap and mask, glove and drape, the RIGHT arm was prepped and draped in the usual sterile fashion of full barrier technique with CHG. Using ultrasound guidance, BASILIC vein access was obtained IN SINGLE ATTEMPT BY THIS RN. A SINGLE LUMEN, NON-PASV, (20G x 10CM) MIDLINE was positioned. The procedure was performed in S-272. Ultrasound was used to document vein patency and for needle entry. A formal ultrasound picture was recorded. [employer] has released the line for use and it is currently dressed with a StatLock, Tegaderm, and CHG disc. Verification has been performed for blood return and line patency. Arm Circumference: 30 CM Equipment: [employer] POWERGLIDE PRO Catheter Type: SINGLE LUMEN, NON-PASV, (20G x 10CM) Lot #: [id number]
[2021-10-30] MEDS: polyethylene glycoL 3350 17 GM POWD.PACK PO (12:53)
[2021-10-30] MEDS: Sennosides 8.6 MG TABLET PO (12:53)
--- NOTE | 2021-10-30 12:55 | MHC.CM.PN ---
PLAN IS 4 PM FROM [facility] TO [facility] TO TRANSPORT. (IN ROOM) AWARE RN AND UNIT AWARE IMM 10/29 IN CHART
[2021-10-30 13:29] VITALS: PULSE 86; RESP 20; O2SAT 94
[2021-10-30] MEDS: Albuterol Sulfate 90 MCG 8 GM INHALER 2 PUFF INHALE (13:29)
[2021-10-30 13:34] LABS: COVID-19 Test Negative (Negative); IDNOW Serial# 16C4AD1C
--- NOTE | 2021-10-30 14:39 | P.DS_ITS ---
DS: Providers Provider Date of Service: 10/30/21 Date of admission: 10/25/21 20:39 Primary care physician: Jak Dalal MD Consults: 10/25/21 14:10 Consult to Infectious Diseases Routine Consulting Provider: [place] Solorzano Reason for consultation: sepsis, PCN allergy 10/27/21 13:23 Consult to Urology Routine Consulting Provider: Dm Monique Reason for consultation: recurrent infections; alternatives to Luther? 10/28/21 15:40 Consult to Neurology Routine Consulting Provider: [facility] Reason for consultation: tremor- ?parksinonsim 10/29/21 12:30 Consult to Infectious Diseases Routine Consulting Provider: [place] Solorzano Reason for consultation: pseudomonas, allergic to penicillins DS: Diagnosis Discharge Diagnosis (1) Urinary tract infection: Status: Acute (2) Chronic indwelling Luther catheter: Status: Acute DS: Summary Hospital Course Hospital Course: from admission H+P by hospitalist Sandeep Reeves MD (10/26/21): This is an 81-year-old male with past medical history of a flutter status post ablation on Eliquis, restless leg syndrome, HTN, CHF, ETIENNE, BPH on chronic indwelling Luther catheter, [employer] 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 History is obtained mostly from ED PA as patient is completely confused, and unable to give history.? According to ED patient was sent by facility due to fever of 100.6, and 1 family member while visiting the patient finding him to be more lethargic. On my interview, patient is alert, not oriented to self place or time.? He is unaware of why he is in the hospital.? After obtaining records from [facility], it appears that patient was recently treated for Enterococcus the Cialis and was discharged on a 7 day course of amoxicillin to the jail facility on 10/12 Patient's vitals on arrival unremarkable Labs show WBC of 13.0, hemoglobin of 12.2, UA that is positive for nitrites, leukocyte Estrace and WBC Chest x-ray shows subsegmental atelectasis Patient will be admitted for further management This 81yo M with atrial flutter, giant cell artiritis, BPH, CHF, HTN, and urinary retention with chronic indweling Luther who was recently admitted to [facility] 10/08-10/12/21 for Enterococcus faecalis UTI and sent to [facility] was brought in to [facility] with fever and AMS. He was admitted to the medical/surgical floor for complicated UTI. He was placed on ampicillin for history of Enterococcus faecalis, which he indeed grew out again from his urine. Urine also grew out quinolone-resistant Pseuodomonas aeurignosa. ID was consulted. He was started on meropenem IV. He completed 4 days of IV ampicillin and 2 days of IV meropenem. Midline catheter was placed. He will complete 3 more days of PO amoxicillin plus 5 more days of IV meropenem. His mental status returned to baseline with treatment of the infection. Neurology was consulted regarding a chronic tremor, and outpatient follow-up was recommended. He was discharged back to [facility] for short-term rehabilitation nursing care. Time Spent with Patient Time attestation: Total time spent providing and/or coordinating discharge services: Discharge coordination time: Greater than 30 minutes Quality: Safe Use of Opioids Does Pt have an Active Cancer Diagnosis on the Problem List?: No Quality: Stroke Does the patient have a stroke diagnosis?: No Physical Exam Vital Signs: Vital Signs: Last Vital Signs Temp 97.5 F 10/30/21 12:00 Pulse 86 10/30/21 13:29 Resp 20 10/30/21 13:29 BP 115/65 10/30/21 12:00 Pulse Ox 94 10/30/21 12:00 Oxygen Flow Rate 2 10/25/21 13:24 BMI result Body Mass Index 21.8 Gen: in no acute distress HEENT: sclera anicteric, moist mucus membranes Neck: supple Lungs: clear to auscultation bilaterally Heart: regular rate and rhythm, no murmurs Abd: soft, non-tender, non-distended : Luther in place Ext: no edema Skin: warm/well-perfused Neuro: alert and oriented to self and place, tremor upper extremities Psych: appropriate affect DS: Data Data Completed and Pending Completed studies during hospitalization [Text1]: Laboratory Results WBC 9.3 X10*3/uL (4.8-10.8) 10/29/21 05:47 RBC 3.64 X10*6/uL (4.60-5.80) L 10/29/21 05:47 Hgb 10.7 g/dl (14.0-18.0) L 10/29/21 05:47 Hct 34.2 % (42.0-52.0) L 10/29/21 05:47 MCV 94.0 fL (80.0-98.0) 10/29/21 05:47 MCH 29.4 pg (27.0-33.0) 10/29/21 05:47 MCHC 31.3 g/dl (31.0-36.0) 10/29/21 05:47 RDW 14.8 % (11.0-16.0) 10/29/21 05:47 Plt Count 217 X10*3/uL (160-400) 10/29/21 05:47 MPV 9.4 fL (9.4-12.4) 10/29/21 05:47 Immature Gran % (Auto) 0.6 % (0.0-0.4) H 10/26/21 06:24 Neut % (Auto) 73.9 % (45-73) H 10/26/21 06:24 Lymph % (Auto) 13.3 % (20-40) L 10/26/21 06:24 [place] % (Auto) 8.8 % (2-11) 10/26/21 06:24 Eos % (Auto) 3.0 % (0-4) 10/26/21 06:24 Baso % (Auto) 0.4 % (0-2) 10/26/21 06:24 Lymph # (Auto) 1.1 X10*3/uL (1.2-4.9) L 10/26/21 06:24 [place] # (Auto) 0.7 X10*3/uL (0.1-1.2) 10/26/21 06:24 Eos # (Auto) 0.3 X10*3/uL (0.0-0.4) 10/26/21 06:24 Baso # (Auto) 0.0 X10*3/uL (0.0-0.2) 10/26/21 06:24 Abs Immat Gran (auto) 0.05 X10*3/uL (0.00-0.03) H 10/26/21 06:24 Absolute Neuts (auto) 6.2 x10*3/uL (2.0-8.3) 10/26/21 06:24 Absolute Nucleated RBC 0.000 X10*3/uL (0.0-0.012) 10/29/21 05:47 Nucleated RBC % (auto) 0.0 /100WBC (0.0-0.2) 10/29/21 05:47 Sodium 141 mmol/L (135-145) 10/29/21 05:47 Potassium 4.1 mmol/L (3.3-5.1) 10/29/21 05:47 Chloride 107 mmol/L (96-108) 10/29/21 05:47 Carbon Dioxide 27 mmol/L (22-29) 10/29/21 05:47 Anion Gap 11 (12-20) L 10/29/21 05:47 BUN 15 mg/dL (9-16) 10/29/21 05:47 Creatinine 0.88 mg/dL (0.5-1.4) 10/29/21 05:47 Estim Creat Clear Calc 65.7 10/29/21 05:47 Estimated GFR > 60 10/29/21 05:47 POC Glucose 94 mg/dL (60-115) 10/25/21 13:37 Random Glucose 100 mg/dL (60-115) 10/29/21 05:47 Lactic Acid 1.0 mmol/L (0.5-2.0) 10/25/21 13:51 Calcium 8.1 mg/dL (8.4-10.2) L 10/29/21 05:47 Total Bilirubin 0.8 mg/dL (0.0-1.0) 10/25/21 15:30 AST 23 U/L (5-37) 10/25/21 15:30 ALT 24 U/L (0-40) 10/25/21 15:30 Alkaline Phosphatase 73 U/L (39-117) 10/25/21 15:30 Troponin I High Sens 6.5 ng/L (<3.5-35.0) 10/25/21 13:51 C-Reactive Protein 11.05 mg/dL (< or = 0.50) H 10/29/21 05:47 B-Natriuretic Peptide 84 pg/mL (<100) 10/25/21 13:51 Total Protein 5.2 g/dL (6.5-8.0) L 10/25/21 15:30 Albumin 2.8 g/dL (3.5-5.0) L 10/25/21 15:30 Urine Color YELLOW 10/25/21 13:59 Urine Appearance CLOUDY 10/25/21 13:59 Urine pH 5.5 (5.0-8.0) 10/25/21 13:59 Ur Specific Micro 1.025 (1.005-1.025) 10/25/21 13:59 Urine Protein 1+ MG/DL (NEG-TRACE) H 10/25/21 13:59 Urine Glucose (UA) NEG MG/DL (NEG) 10/25/21 13:59 Urine Ketones NEG MG/DL (NEG) 10/25/21 13:59 Urine Blood 3+ (NEG) H 10/25/21 13:59 Urine Nitrite POS (NEG) H 10/25/21 13:59 Ur Leukocyte Esterase 3+ (NEG) H 10/25/21 13:59 Urine RBC 15-29 /HPF (0) H 10/25/21 13:59 Urine WBC TNTC /HPF (0-4) H 10/25/21 13:59 Ur Squamous Epith Cells NONE /LPF 10/25/21 13:59 Amorphous Sediment TRACE /LPF 10/25/21 13:59 Urine Bacteria 1+ /LPF 10/25/21 13:59 Urine Mucus 1+ /LPF 10/25/21 13:59 COVID-19 (ERWIN) Negative (Negative) 10/30/21 12:57 COVID-19 Clin Com See Note 10/30/21 12:57 Influenza Type A (JOSESITO) Negative (Negative) 10/25/21 13:59 Influenza Type B (JOSESITO) Negative (Negative) 10/25/21 13:59 Influenza A & B Note See Note 10/25/21 13:59 Impressions Chest X-Ray 10/25/21 14:20 IMPRESSION: Subsegmental atelectasis at the lung bases. Question small left pleural effusion. Discharge Plan Discharge Patient Disposition: [facility] Discharge Diagnosis: complicated UTI with Enterococcus faecalis + Pseudomonas aeruginosa encephalopathy tremor Referrals: [facility] [Provider Group] - 2 Weeks [facility] [Outside] - 1 Week Jak Dalal MD [Primary Care Provider] - 1 Week Eloisa Hwang MD [Physician] - 1 Month Discharge Medications: New meropenem 1 gram Recon Soln 1 g IV Q8H Qty: 15 0RF finasteride [Proscar] 5 mg Tablet 5 mg PO DAILY Qty: 30 0RF sodium chloride 0.9 % (flush) [Normal Saline Flush] Syringe 5 ml IVFLUSH TID Qty: 15 0RF heparin, porcine (PF) [Heparin LockFlush(Porcine)(PF)] 10 unit/mL Syringe 50 units IVFLUSH TID Qty: 15 0RF amoxicillin 500 mg tablet 500 mg PO Q8H Qty: 9 0RF Continued multivitamin Tablet 1 tab PO DAILY 0RF sennosides [senna] 8.6 mg Tablet 8.6 mg PO DAILY PRN (Reason: Constipation) 0RF gabapentin 600 mg Tablet 600 mg PO BEDTIME 0RF paroxetine HCl 10 mg Tablet 5 mg PO DAILY 0RF polyethylene glycol 3350 17 gram Powder In Packet 17 g PO DAILY PRN (Reason: Constipation) 0RF calcium carbonate-vitamin D3 600 mg-5 mcg (200 unit) Tablet 1 tab PO DAILY 0RF acetaminophen 650 mg Tablet Extended Release 650 mg PO Q4H PRN (Reason: TEMP>100.5) 0RF amiodarone 400 mg Tablet 400 mg PO BID 0RF tamsulosin 0.4 mg capsule 2 cap PO DAILY 0RF prednisone 1 mg Tablet 3 mg PO DAILY 0RF nystatin 100,000 unit/gram Cream 1 appl TOPICAL QID PRN (Reason: Rash) 0RF Rx Instructions: APPLY TO RASH AND GROIN AREA furosemide 20 mg Tablet 20 mg PO DAILY 0RF metoprolol succinate 25 mg Tablet Extended Release 24 Hr 75 mg PO DAILY 0RF Rx Instructions: HOLD FOR SBP<110 AND DBP<55 pramipexole 0.75 mg Tablet 0.75 mg PO BEDTIME 0RF Neupro 3 mg/24 hour patch 24 hour 1 patch topical DAILY 0RF Eliquis 5 mg tablet 1 tab PO BID 0RF albuterol sulfate 90 mcg/actuation Aerosol Powdr Breath Activated 2 inh INHALATION Q4-6H PRN (Reason: Wheezing) 0RF Discontinued sulfamethoxazole-trimethoprim 800-160 mg tablet 1 tab PO MOWEFR 0RF Discharge Orders: Discharge Order (Routine); Ordered 10/30/21 Ordered By: Jaehyun Natividad Diet: advance to usual diet and low salt diet Activity on Discharge: As tolerated Stand Alone Forms: Patient Portal Discharge page Care Plan Goals: cure of UTI Health Concerns: UTI urinary retention tremor Plan of Treatment: UTI: take amoxicillin 500 mg by mouth every 8 hours for 3 days for Enterococcus faecalis. infuse meropenem 1 gram IV via midline every 8 hours for 5 days for Pseudomonas aeruginosa. follow up with [facility] Neurology outpatient evaluation Assessment: See Discharge Summary
[2021-10-30] MEDS: Heparin Sodium,Porcine Flush 50 UNITS, 0.9 % Sodium Chloride Flush 5 ML IVFLUSH (14:56)
[2021-10-30 15:44] VITALS: BP 92/50; PULSE 88; RESP 18; TEMP 36.8; O2SAT 94
--- NOTE | 2021-11-03 09:28 | P.CDIR_ITS ---
Documented by User: Iris Almonte CCS, CDIS 11/03/21 09:34 Retrospective Query PHYSICIAN'S DOCUMENTATION REQUEST Date of Query: 11/03/21928 Patient Name: Aron Schilling Admit Date: 10/25/21 Dear Doctor, A review of the medical record indicates additional documentation may be indicated. Please review below and update the documentation accordingly. Clinical Indicators: Risk Factors/Clinical Indicators/Treatments Event note 10/26 - Acute UTI in setting of indwelling rizzo catheter. Follow culture Treating with antibiotics. PN 10/28 & 10/29 - UTI complicated (indwelling rizzo) Ampicillin Please provide further specificity regarding the site, etiology, acuity, and known or suspected organism: * UTI due to chronic indwelling rizzo catheter * UTI associated with chronic indwelling rizzo catheter * Other etiology of UTI * Unable to determine Use of terms such as suspected, likely, concern for, or probable (associated with a specific diagnosis that is being evaluated, monitored, or treated as if it exists) are acceptable and can be coded in the inpatient setting, when documented at the time of discharge. Thank you, Iris Almonte CCS, CDIS Extension: [phone] Please use your independent medical judgment in providing your response. THIS QUERY IS PART OF THE PERMANENT MEDICAL RECORD Documented by User: Bennie Henson MD 11/10/21 11:11 Retrospective Query Provider Response: Other (UTI associated with chronic indwelling rizzo catheter)
== END 2021-10-30 16:25 | disposition skilled nursing facility (03) | DRG 698 ==
LOC: HO.ED 18:33 → HO.EDOVER 20:48 → HO.S3 10-26 17:34
PROVIDERS: Nurse Practitioner Acute Care; Nurse Practitioner Family; Admitting Provider Internal Medicine; Emergency Provider Emergency Medicine; PCP Internal Medicine; Visit Provider Family Medicine
DX: T83.511A Infection and inflammatory reaction due to indwelling urethral catheter, initial encounter (principal); G93.41 Metabolic encephalopathy; I48.92 Unspecified atrial flutter; Z16.23 Resistance to quinolones and fluoroquinolones; N39.0 Urinary tract infection, site not specified; I11.0 Hypertensive heart disease with heart failure; G47.33 Obstructive sleep apnea (adult) (pediatric); I50.9 Heart failure, unspecified; M31.6 Other giant cell arteritis; G25.81 Restless legs syndrome; N40.1 Benign prostatic hyperplasia with lower urinary tract symptoms; R33.8 Other retention of urine; B96.5 Pseudomonas (aeruginosa) (mallei) (pseudomallei) as the cause of diseases classified elsewhere; B95.2 Enterococcus as the cause of diseases classified elsewhere; Z20.822 Contact with and (suspected) exposure to COVID-19; Z87.440 Personal history of urinary (tract) infections; Z88.0 Allergy status to penicillin; Z79.01 Long term (current) use of anticoagulants; Z79.52 Long term (current) use of systemic steroids; Z79.899 Other long term (current) drug therapy
CPT/HCPCS: 36410; 36415; 71046; 80048; 80053; 81001; 82947; 83605; 83880; 84484; 85025; 85027; 86140; 87040; 87086; 87088; 87186; 87502; 87635; 93005; 94640; 96361; 96374; 97110; 97162; 97530; 99285; C1758; J0290; J1642; J2185